=== PATIENT | male | born 1940 | race Caucasian/White ===

== ENCOUNTER 2018-01-28 15:21 | Emergency (ER) | payer MEDICARE, SELFPAY ==
[2018-01-28] VITALS (9 sets, daily range): BP systolic 106–132; BP diastolic 72–81; PULSE 69–77; RESP 16–21; TEMP 36.3; O2SAT 95–98; BMI 25.1
--- NOTE | 2018-01-28 15:49 | ED_ITS ---
HPI - Chest Pain General Chief Complaint: Chest Pain Stated Complaint: CHEST PRESSURE, SHORT OF BREATH Time Seen by Provider: 01/28/18 15:48 Source: patient Mode of arrival: ambulatory Limitations: no limitations History of Present Illness HPI narrative: 78-year-old male with a significant cardiac history to include 2 coronary artery bypass grafts currently on a statin and metoprolol and baby aspirin here for evaluation of chest pressure patient states that it started yesterday sometime in the afternoon. He states that it has improved somewhat since then but is still there. He did take a nitroglycerin at home earlier today which did seem to help it somewhat but did not resolve it completely. He states that he has had chest pressure in the past with exertion but then goes away when he stops the activity. Also states that he has some minor shortness of breath with the pressure. No headache no dizziness. He does state that this is what he felt like prior to events that led to his coronary artery bypass graft. He states that his last stress test was in 2012 or 2013. Related Data Home Medications Medication Instructions Recorded Confirmed aspirin 81 mg PO BID 01/28/18 01/28/18 metoprolol succinate 25 mg PO BEDTIME 01/28/18 01/28/18 naproxen sodium [Aleve] 220 mg PO PRN PRN 01/28/18 01/28/18 nitroglycerin [Nitrostat] 0.4 mg SUBLINGUAL Q5-15M PRN 01/28/18 01/28/18 rosuvastatin 20 mg PO BEDTIME 01/28/18 01/28/18 Allergies Allergy/AdvReac Type Severity Reaction Status Date / Time No Known Drug Allergies Allergy Verified 01/28/18 16:54 Review of Systems Constitutional Denies chills, Denies fever(s), Denies lethargy and Denies weakness Cardiovascular Reports chest pain (Described as a pressure), Reports chest pain at rest, Reports chest pain with activity, Denies diaphoresis, Denies syncope, Denies rapid heart rate, Denies pedal edema, Denies irregular heart rhythm, Denies palpitations, Reports dyspnea and Denies dyspnea on exertion Respiratory Denies chest congestion, Denies cough, Reports dyspnea, Denies dyspnea on exertion and Denies wheezing Gastrointestinal Gastrointestinal: Denies constipation, Denies diarrhea, Denies nausea and Denies vomiting Genitourinary Denies dysuria Musculoskeletal Denies myalgias, Denies arthralgias and Denies muscle cramps Integumentary/Breasts Denies lesions, Denies rash and Denies wounds Neurologic Denies behavioral changes, Denies syncope and Denies weakness Psychiatric Denies behavioral changes Endocrine Denies palpitations Hematologic/Lymphatic Denies easy bleeding and Denies easy bruising Allergic/Immunologic Denies urticaria and Denies wheezing PFSH Surgical History History of cystoscopy History of tonsillectomy History of vasectomy Status post appendectomy Status post cardiac catheterization Status post cardiac catheterization Status post coronary artery bypass graft (06/02/99) Social History Smoking Status: Never smoker Exam Initial Vital Signs Initial Vital Signs: Vital Signs Temperature 97.3 F L 01/28/18 15:31 Pulse Rate 69 01/28/18 15:31 Respiratory Rate 16 01/28/18 15:31 Blood Pressure 128/78 H 01/28/18 15:31 Pulse Oximetry 97 01/28/18 15:31 Const General: cooperative, healthy appearing, comfortable, well developed, well groomed and No acute distress Orientation: alert, awake and oriented x3 HENMI Head: normal to inspection and normocephalic Ears: hearing grossly normal bilaterally Mouth: oral mucosae normal Chest Chest: normal inspection of the chest Resp Effort & Inspection: normal respiratory effort Auscultation: clear to auscultation bilaterally Cardio Rate: regular rate Rhythm: regular rhythm Pulses: radial pulses present GI Inspection: non-distended Palpation: soft, No firm, No guarding and No tender Skin Lesions: no lesions Rashes: no rashes Neuro General: alert, awake and oriented x3 Cognition: normal cognition Speech: speech normal Gait: normal gait Motor: muscle tone normal throughout Sensory Exam: no sensory deficits noted Extrem General: normal to inspection and capillary refill normal Course Orders Ordered: ED Orders 01/28/18 15:37 B Type Natriuretic Peptide Stat Complete Blood Count AUTO DIFF Stat Comprehensive Metabolic Panel Stat Lipase Stat Partial Thromboplastin Time Stat Prothrombin Time INR Stat Troponin I Stat 01/28/18 15:50 XR chest 1V Stat EKG-12 Lead Stat Discontinued Medications Aspirin (Aspirin Chew) 324 mg PO NOW ONE Stop: 01/28/18 15:50 Last Admin: 01/28/18 16:07 Dose: 324 mg Nitroglycerin (Nitro-Bid) 1 inch TOP NOW ONE Stop: 01/28/18 16:46 Last Admin: 01/28/18 16:56 Dose: 1 inch Vital Signs - 8 hr 01/28/18 15:31 01/28/18 16:28 01/28/18 16:50 Temperature 97.3 F L Pulse Rate 69 72 75 Respiratory Rate 16 16 17 Blood Pressure 128/78 H Blood Pressure [Left Arm] 113/81 H 126/81 H Pulse Oximetry 97 96 96 01/28/18 16:56 01/28/18 17:12 01/28/18 17:42 Temperature Pulse Rate 72 72 77 Respiratory Rate 21 Blood Pressure 126/81 H 113/72 Blood Pressure [Left Arm] 106/77 Pulse Oximetry 97 MDM - Chest Pain Lab Data Attestation: I reviewed the patient's lab results. Result diagrams: 01/28/18 15:37 01/28/18 15:37 Lab Results 01/28/18 01/28/18 01/28/18 Range/Units 15:37 15:37 15:37 WBC 5.3 (4.5-11.0) X10^3/uL RBC 4.91 (4.5-5.9) X10^6/uL Hgb 15.1 (13.5-17.5) g/dL Hct 44.8 (41-53) % MCV 91.2 (80-100) fL MCH 30.7 (26-34) PG MCHC 33.7 (30-36) % RDW 14.0 (11.6-14.8) % Plt Count 134 L (150-400) X10^3/uL Neut % (Auto) 75.6 H (50-75) % Lymph % (Auto) 10.7 L (25-40) % Carver % (Auto) 12.7 (3-14) % Eos % (Auto) 0.8 L (2-4) % Baso % (Auto) 0.2 (0-2) % Neut # (Auto) 4000 (4268-2784) /uL PT 12.5 (10.1-12.7) SECONDS INR 1.2 (0.9-1.3) APTT 27 (26.4-36.2) SECONDS Sodium 140 (137-145) mmol/L Potassium 3.7 (3.4-5.1) mmol/L Chloride 102 (98-107) mmol/L Carbon Dioxide 30 (22-32) mmol/L BUN 18 (9-20) mg/dL Creatinine 0.90 (0.66-1.25) mg/dL Estimated GFR > 60.0 (>60) mL/min BUN/Creatinine Ratio 20.0 (6-22) Glucose 99 (80-110) mg/dL Calcium 8.3 L (8.4-10.2) mg/dL Total Bilirubin 1.0 (0.2-1.3) mg/dL AST 27 (17-59) IU/L ALT 26 (21-72) IU/L Alkaline Phosphatase 79 (38-126) U/L Troponin I (0.01-0.034) ng/mL B-Natriuretic Peptide 60.3 (<100) Total Protein 7.2 (6.3-8.2) g/dL Albumin 4.1 (3.5-5.0) g/dL Globulin 3.1 (1.7-4.1) g/dL Albumin/Globulin Ratio 1.3 (1.0-2.8) Lipase 46 (23-300) U/L 01/28/18 Range/Units 15:37 WBC (4.5-11.0) X10^3/uL RBC (4.5-5.9) X10^6/uL Hgb (13.5-17.5) g/dL Hct (41-53) % MCV (80-100) fL MCH (26-34) PG MCHC (30-36) % RDW (11.6-14.8) % Plt Count (150-400) X10^3/uL Neut % (Auto) (50-75) % Lymph % (Auto) (25-40) % Carver % (Auto) (3-14) % Eos % (Auto) (2-4) % Baso % (Auto) (0-2) % Neut # (Auto) (4605-3989) /uL PT (10.1-12.7) SECONDS INR (0.9-1.3) APTT (26.4-36.2) SECONDS Sodium (137-145) mmol/L Potassium (3.4-5.1) mmol/L Chloride (98-107) mmol/L Carbon Dioxide (22-32) mmol/L BUN (9-20) mg/dL Creatinine (0.66-1.25) mg/dL Estimated GFR (>60) mL/min BUN/Creatinine Ratio (6-22) Glucose (80-110) mg/dL Calcium (8.4-10.2) mg/dL Total Bilirubin (0.2-1.3) mg/dL AST (17-59) IU/L ALT (21-72) IU/L Alkaline Phosphatase (38-126) U/L Troponin I < 0.012 (0.01-0.034) ng/mL B-Natriuretic Peptide (<100) Total Protein (6.3-8.2) g/dL Albumin (3.5-5.0) g/dL Globulin (1.7-4.1) g/dL Albumin/Globulin Ratio (1.0-2.8) Lipase (23-300) U/L Imaging Data Chest x-ray: Radiologist's impression: PROCEDURE: XR CHEST 1V INDICATIONS: Chest pain TECHNIQUE: One view of the chest was acquired. COMPARISON: [facility], , CHEST 2 VIEW, 09/14/2013, 14:59. FINDINGS: Surgical changes and devices: Sternal wires and hilar clips. Lungs and pleura: No consolidations or pneumothorax. Opacities are present overlying the left base and costophrenic angle. This could be overlying to the patient. Mediastinum: Mediastinal contours appear normal. Heart size is mildly enlarged. Bones and chest wall: No suspicious bony lesions. Overlying soft tissues appear unremarkable. IMPRESSION: Obscured appearance of the inferior left base and costophrenic angle secondary to opacities. Please correlate to overlying structures on repeat study is recommended as indicated. Dictated by: Luisa Suero M.D. on 01/28/2018 at 16:20 Approved by: Luisa Suero M.D. on 01/28/2018 at 16:22 ECG Data Attestation: I personally reviewed and interpreted this ECG as follows: Prior ECG tracings: not available for review Interpretation: EKG timed 1526 hr Sinus rhythm Normal axis Ventricular rate is 69 Normal QRS Normal QTC Nonspecific ST T wave changes Repeat EKG timed 426 p.m. Sinus rhythm Ventricular rate is 72 Normal axis Normal QRS Normal QTC Nonspecific ST T wave changes Unchanged from prior EKG MDM Narrative Medical decision making narrative: Patient with a significant coronary history. Had stable vital signs here in the emergency department. Troponin was negative and he states that he has had constant symptoms since yesterday afternoon. EKG shows nonspecific ST T wave changes. Nitroglycerin paste was placed on the right-sided chest and patient states that this did help his symptoms somewhat. He was given an aspirin here in the emergency department. Discussed the case with Dr. Henry at [facility] who accepts the patient in transfer for continued cardiac workup. I did discuss this with the patient and the family who expressed understanding and agreement with plan Discharge Plan Departure Patient Disposition: [facility] Clinical Impression: Chest pain, Coronary artery disease Prescriptions: No Action aspirin 81 mg Tablet,Delayed Release (Dr/Ec) 81 mg PO BID RF: 0 naproxen sodium [Aleve] 220 mg Tablet 220 mg PO PRN PRN (Reason: Pain, Mild) RF: 0 metoprolol succinate 25 mg Tablet Extended Release 24 Hr 25 mg PO BEDTIME RF: 0 rosuvastatin 40 mg Tablet 20 mg PO BEDTIME RF: 0 nitroglycerin [Nitrostat] 0.4 mg Tablet, Sublingual 0.4 mg SUBLINGUAL Q5-15M PRN (Reason: Chest Pain) RF: 0
[2018-01-28 15:59] LABS: Add Manual Diff / Slide Review NO; Basophils Percent Auto 0.2 % (0-2); Eosinophils Percent Auto 0.8 % (2-4); Hematocrit 44.8 % (41-53); Hemoglobin 15.1 g/dL (13.5-17.5); Lymphocytes Percent Auto 10.7 % (25-40); Mean Corpuscular HGB Conc 33.7 % (30-36); Mean Corpuscular Hemoglobin 30.7 PG (26-34); Mean Corpuscular Volume 91.2 fL (80-100); Monocytes Percent Auto 12.7 % (3-14); Neutrophils Absolute Auto 4000 /uL (3000-5900); Neutrophils Percent Auto 75.6 % (50-75); Platelet Count 134 X10^3/uL (150-400); Red Blood Cell Count 4.91 X10^6/uL (4.5-5.9); White Blood Cell Count 5.3 X10^3/uL (4.5-11.0)
[2018-01-28 16:02] LABS: INR 1.2 (0.9-1.3); Prothrombin Time 12.5 SECONDS (10.1-12.7)
[2018-01-28 16:04] LABS: PTT Partial Thromboplastin Tim 27 SECONDS (26.4-36.2)
[2018-01-28] MEDS: ASPIRIN 81 MG TAB 324 MG PO (16:07)
[2018-01-28 16:08] LABS: Alanine Aminotransferase 26 IU/L (21-72); Albumin 4.1 g/dL (3.5-5.0); Albumin Globulin Ratio 1.3 (1.0-2.8); Alkaline Phosphatase 79 U/L (38-126); Aspartate Aminotransferase 27 IU/L (17-59); Blood Urea Nitrogen 18 mg/dL (9-20); Calcium 8.3 mg/dL (8.4-10.2); Carbon Dioxide 30 mmol/L (22-32); Chloride 102 mmol/L (98-107); Estimated Glomerular Filt Rate > 60.0 mL/min (>60); Globulin 3.1 g/dL (1.7-4.1); Glucose 99 mg/dL (80-110); HEMOLYSIS < 15 (0-50); Lipase 46 U/L (23-300); Potassium 3.7 mmol/L (3.4-5.1); Sodium 140 mmol/L (137-145); Total Protein 7.2 g/dL (6.3-8.2)
--- NOTE | 2018-01-28 16:11 | PC.NURSE ---
Pt has hx of angina. Has had 2 open heart surgeries, most recent 4 years ago. Also had 1 stent placed. States he began to experience chest pressure and shortness of breath with exertion yesterday. Took some Aleve and 2 doses of NTG without relief. After 2nd dose of NTG, pt began to feel nauseated and dizzy. Went to bed and when he woke up this morning he was still experiencing chest pressure and SOB with exertion.
[2018-01-28 16:15] LABS: B Type Natriuretic Peptide 60.3 (<100)
[2018-01-28] MEDS: NITROGLYCERIN OINT 1 INCH/GM OINT...G. TOP (16:56)
[2018-01-28 17:17] LABS: Troponin I < 0.012 ng/mL (0.01-0.034)
== END 2018-01-28 20:50 | disposition short-term general hospital (02) ==
PROVIDERS: Emergency Provider Emergency Medicine; Family Provider Family Medicine; PCP Family Medicine; Referring Provider Internal Medicine Cardiovascular Disease
DX: I25.10 Atherosclerotic heart disease of native coronary artery without angina pectoris (principal); R07.9 Chest pain, unspecified
CPT/HCPCS: 36591; 71045; 80053; 83690; 83880; 84484; 85025; 85610; 85730; 93005; 93041; 99283; 99285

== ENCOUNTER → 2018-11-05 11:18 | Outpatient (CLI) | payer MEDICARE, SELFPAY | PROVIDERS: Family Provider Family Medicine; PCP Family Medicine; Visit Provider Urology | DX: N40.1 Benign prostatic hyperplasia with lower urinary tract symptoms (principal) | CPT/HCPCS: 36415; 84153 ==

== ENCOUNTER → 2019-10-01 06:56 | Outpatient (CLI) | payer MEDICARE, SELFPAY ==
--- NOTE | 2019-10-01 06:58 | DI.ECHO.S_ITS ---
[facility] +---------+ : : [address] [place] : : : : [id number] : : : : Phone: [phone]+ Echocardiogram Report + + :Name: ALDO DE LA O Study Date: 10/01/2019 Height: 70 in : :[facility] Weight: 175 lb : : Gender: Male BSA: 2.0 m2 : :: 1940 Age: 79 yrs BP: 128/82 mmHg: :Reason For Study: CAD : : Performed By: Rosette Singh : :Referring: ESTEE CEDEÑO : + + Interpretation Summary Left ventricular systolic function is moderately reduced with the ejection fraction estimated to be 40-45% with moderate global hypokinesis and more significant hypokinesis in the proximal and mid inferoseptum, inferior wall, and inferolateral wall, as well as an abnormal septal motion consistent with a postoperative state, but both appear unchanged from previous. The left ventricle is mild-moderately dilated with an estimated left ventricular end diastolic volume of 125 ml, up from 110 ml on the previous study. The left ventricle appears slightly larger and slightly less dynamic compared to the previous study. Average global peak systolic longitudional strain is moderately reduced at -14.1%. Diastolic parameters suggest a relaxation abnormality of the left ventricle, consistent with probable normal filling pressures and is likely lower compared to the previous study. The right ventricle is normal size but is unchanged compared to the previous study. Right ventricular systolic pressure is estimated to be 28 mmHg plus the clinically estimated CVP which cannot be estimated on this exam. The left atrium is mildly dilated but has mildly decreased in size since the prior echo exam. There is mild to moderate mitral regurgitation that is unchanged compared to the previous study. There is moderate aortic valve sclerosis without significant aortic stenosis and there is no other significant valvular heart disease. The aortic root is borderline dilated and the ascending aorta is mildly enlarged but both are unchanged compared to the previous study. Procedure: A two-dimensional transthoracic echocardiogram with color flow and Doppler was performed. The study quality was technically adequate. Comparison is made with the echocardiogram of 05/15/2016. Contrast not used due to good endocardial border definition. The patient was in normal sinus rhythm during the exam. Left Ventricle: The left ventricle is mild-moderately dilated. The estimated left ventricular end diastolic volume is 125 ml, up from 110 ml. There is normal left ventricular wall thickness. Left ventricular systolic function is moderately reduced. The ejection fraction is estimated to be 40-45%. Average global peak systolic longitudional strain of -14.1%. There is moderate global hypokinesis of the left ventricle. That is worse in the proximal and mid inferoseptum, inferior wall, and inferolateral wall but this appears unchanged from previous. This is Slightly larger and less dynamic compared to the previous study. Diastolic parameters suggest a relaxation abnormality of the left ventricle, consistent with probable normal filling pressures. This is Likely lower compared to the previous study. Right Ventricle: The right ventricle is normal size. Right ventricular systolic function is mildly reduced. This is unchanged compared to the previous study. Atria: The left atrium is mildly dilated. The left atrium has mildly decreased in size since the prior echo exam. Right atrial size is normal. There is no Doppler evidence for an interatrial shunt. Mitral Valve: The mitral valve leaflets appear mildly thickened, but open well. There is mild to moderate mitral regurgitation. This is unchanged compared to the previous study. Aortic Valve: There is moderate aortic valve sclerosis. There is reduced mobility of the non-coronary cusp. Right and left coronary cusps appear to open well. There is no hemodynamically significant valvular aortic stenosis. There is trace aortic regurgitation. Tricuspid Valve: The tricuspid valve is normal in structure and function. There is trace tricuspid regurgitation. Right ventricular systolic pressure is estimated to be 28 mmHg plus the clinically estimated CVP which cannot be estimated on this exam. Pulmonic Valve: The pulmonic valve is not well seen, but is grossly normal. There is no pulmonic valvular regurgitation. There is no other significant valvular heart disease. Great Vessels: The aortic root is borderline dilated. The ascending aorta is mildly enlarged. This is unchanged compared to the previous study. The inferior vena cava was not visualized. Pericardium/ Pleura There is no pericardial effusion. There is no pleural effusion. MMode/2D Measurements & Calculations LVIDd: 6.3 cm LVOT diam: 2.3 cm LVIDs: 5.3 cm Ao root diam: 3.8 cm FS: 16.2 % asc Aorta Diam: 3.9 cm EPSS: 1.8 cm Ao Arch Diam (Prox Trans): 3.1 cm IVSd: 0.74 cm LVPWd: 0.94 cm LV chavira. diameter/BSA (cm/m^2): 3.2 LV sys. diameter/BSA (cm/m^2): 2.7 LA A2 area: 23.0 cm2 RA long axis: 5.1 cm LA A4 area: 17.5 cm2 RA area: 13.9 cm2 LA length (vol): 4.7 cm RA vol: 32.3 ml LA vol: 72.4 ml RA : 16.4 ml/m2 LA vol index: 36.7 ml/m2 RVD1 (basal): 3.8 cm LVAd ap4: 33.1 cm2 TAPSE: 1.8 cm LVAs ap4: 22.9 cm2 LVLs ap4: 6.9 cm LVAd ap2: 34.3 cm2 LVLd ap2: 8.3 cm LVAs ap2: 18.2 cm2 LVLs ap2: 7.0 cm Doppler Measurements & Calculations Ao V2 max: 164.2 cm/sec LVOT Max Dmitriy: 74.5 cm/sec Ao V2 mean: 110.9 cm/sec LV V1 max P.2 mmHg Ao max P.8 mmHg LV V1 VTI: 16.5 cm Ao mean P.6 mmHg JASMINE(I,D): 1.8 cm2 Ao V2 VTI: 38.4 cm JASMINE(V,D): 1.9 cm2 sev ratio: 0.43 JASMINE indexed to BSA (cm^2/m^2): 0.91 MV E max dmitriy: 88.5 cm/sec TR max dmitriy: 264.6 cm/sec MV A max dmitriy: 82.6 cm/sec TR max P.0 mmHg MV E/A: 1.1 PA V2 max: 100.0 cm/sec Med Peak E' Dmitriy: 9.0 cm/sec PA V2 mean: 74.3 cm/sec E/E' med: 9.8 PA mean P.4 mmHg Lat Peak E' Dmitriy: 8.3 cm/sec PA pr(Accel): 38.5 mmHg E/E' lat: 10.6 PA Accel Time: 0.10 sec E/e' average: 10.2 MV dec time: 0.18 sec MV P1/2t: 57.4 msec MV P1/2t max dmitriy: 88.8 cm/sec SV(LVOT): 68.9 ml MVA(P1/2t): 3.8 cm2 Reading Physician:CONSUELO
== END ==
PROVIDERS: Family Provider Family Medicine; PCP Family Medicine; Referring Provider Family Medicine; Visit Provider Family Medicine
DX: I08.0 Rheumatic disorders of both mitral and aortic valves (principal); I25.810 Atherosclerosis of coronary artery bypass graft(s) without angina pectoris; I77.89 Other specified disorders of arteries and arterioles
CPT/HCPCS: 93306

== ENCOUNTER → 2019-10-12 14:59 | Outpatient (CLI) | payer MEDICARE, SELFPAY ==
[2019-10-12 17:34] LABS: Add Manual Diff / Slide Review NO; Basophils Absolute Auto 0 /uL (0-100); Basophils Percent Auto 0.8 % (0-2); Eosinophils Absolute Auto 0 /uL (0-450); Hematocrit 45.8 % (41-53); Hemoglobin 15.3 g/dL (13.5-17.5); Lymphocytes Absolute Auto 1200 /uL (1100-4500); Lymphocytes Percent Auto 23.8 % (25-40); Mean Corpuscular HGB Conc 33.4 % (30-36); Monocytes Absolute Auto 500 /uL (0-900); Monocytes Percent Auto 11.1 % (3-14); Neutrophils Absolute Auto 3100 /uL (1500-7000); Neutrophils Percent Auto 63.3 % (50-75); Platelet Count 138 X10^3/uL (150-400); Red Blood Cell Count 4.92 X10^6/uL (4.5-5.9); Red Cell Distribution Width 13.6 % (11.6-14.8); White Blood Cell Count 4.9 X10^3/uL (4.5-11.0)
[2019-10-12 19:22] LABS: Alanine Aminotransferase 21 IU/L (<50); Albumin 4.8 g/dL (3.5-5.0); Albumin Globulin Ratio 1.5 (1.0-2.8); Alkaline Phosphatase 81 U/L (38-126); Aspartate Aminotransferase 36 IU/L (17-59); BUN Creatinine Ratio 14.1 (6-22); Bilirubin Total 0.5 mg/dL (0.2-1.3); Blood Urea Nitrogen 14 mg/dL (9-20); Calcium 9.4 mg/dL (8.4-10.2); Carbon Dioxide 30 mmol/L (22-32); Chloride 103 mmol/L (98-107); Estimated Glomerular Filt Rate > 60.0 mL/min (>60); Globulin 3.1 g/dL (1.7-4.1); Glucose 78 mg/dL (80-110); HEMOLYSIS < 15 (0-50); Potassium 4.6 mmol/L (3.4-5.1); Sodium 140 mmol/L (137-145); Total Protein 7.9 g/dL (6.3-8.2)
[2019-10-12 19:28] LABS: NT-proBNP (BNP-Adult 18+) 265 pg/mL (<450)
[2019-10-12 19:50] LABS: Thyroid Stimulating Hormone 2.93 uIU/mL (0.47-4.68)
== END ==
PROVIDERS: Family Provider Family Medicine; PCP Family Medicine; Referring Provider Family Medicine; Visit Provider Family Medicine
DX: I25.810 Atherosclerosis of coronary artery bypass graft(s) without angina pectoris (principal)
CPT/HCPCS: 36415; 80053; 83880; 84443; 85025

== ENCOUNTER → 2020-10-19 09:48 | Outpatient (CLI) | payer MEDICARE, SELFPAY ==
[2020-10-19] MEDS: COVID-19 VACC #1, MRNA(MOD) 100 MCG/0.5 ML VIAL IM (10:06)
== END ==
PROVIDERS: Family Provider Family Medicine; PCP Family Medicine; Visit Provider Internal Medicine
DX: Z23 Encounter for immunization (principal)
CPT/HCPCS: 0011A; 91301

== ENCOUNTER → 2020-11-16 09:16 | Outpatient (CLI) | payer MEDICARE, SELFPAY ==
[2020-11-16] MEDS: COVID-19 VACC #2, MRNA(MOD) 100 MCG/0.5 ML VIAL IM (09:22)
== END ==
PROVIDERS: PCP Family Medicine; Visit Provider Internal Medicine
DX: Z23 Encounter for immunization (principal)
CPT/HCPCS: 0012A; 91301

== ENCOUNTER → 2021-01-16 13:16 | Outpatient (CLI) | payer MEDICARE, SELFPAY ==
[2021-01-16 16:44] LABS: COVID19 -Nasal RAPID Negative (Negative)
== END ==
PROVIDERS: PCP Family Medicine; Visit Provider Physician Assistant
DX: Z01.812 Encounter for preprocedural laboratory examination (principal); Z20.822 Contact with and (suspected) exposure to COVID-19
CPT/HCPCS: 87635; C9803

== ENCOUNTER → 2021-01-18 10:39 | Outpatient (CLI) | payer MEDICARE, SELFPAY ==
--- NOTE | 2021-01-18 11:53 | PM.TREADMILL ---
Cardiac Stress Test Report Referral & Results Date Patient Seen: 01/18/21 Time Patient Seen: 11:53 Requesting provider: Riri Crandall Indication: Athersclerotic heart disease Rest ECG: Sinus bradycardia Procedure Note: Standard Drew protocol, 8:30 mins, 9.3 METS Very good exercise capacity, KELLY -47% Normal hemodynamic response to exercise No chest pain or anginal symptoms Less than [address] depression in II, aVF, V3-V6, T wave inversion III Frequent PVCs, bigimeny Impression: Nondiagnostic exercise stress test Please note: Actual ECG tracings can be found in the PACS system.
--- NOTE | 2021-01-19 15:38 | DI.NM.S_ITS ---
DATE OF SERVICE: 01/18/2021 PROCEDURE PERFORMED: Exercise treadmill stress and rest myocardial perfusion imaging with gating to assess ejection fraction and regional wall motion. ORDERING PROVIDER: Dr. Riri Crandall. INDICATIONS: The patient is a 80-year-old male with a history of coronary artery bypass grafting, who presents with symptoms concerning for stable angina. EXERCISE TREADMILL TESTING: The patient was able to exercise for a total of 8 minutes 30 seconds on a standard Drew protocol suggesting excellent exercise capacity with an KELLY of -47%. He had a normal heart rate and blood pressure response to exercise, achieving a maximum heart rate of 130 BPM (92% of his predicted maximum). He had no chest discomfort. His resting ECG shows subtle, nonspecific ST- segment abnormalities and occasional PVCs. With exercise, he develops frequent PVCs, initially in a bigeminal pattern, but then improving in frequency and no complex ventricular ectopy. There is mild, nonspecific ST depression in inferolateral leads with stress, but no concerning ST depression. At 7 minutes 18 seconds of exercise at a heart rate of 122 BPM, 25.9 millicuries of technetium-99m Myoview was injected and he was imaged 15 minutes later using a gated SPECT acquisition protocol. The following day, he was reinjected with an additional 27.2 millicuries of technetium-99m Myoview and was imaged 30 minutes later using a gated SPECT acquisition protocol. FINDINGS: 1. Raw data: There is fairly good myocardial tracer uptake. Lung/heart ratio is normal at 0.24 with a normal TID ratio of 0.88. 2. Quantitated gated SPECT: Post-stress ejection fraction is 50% without any obvious focal wall motion abnormality. Resting ejection fraction is 53% with a similar contraction pattern. The resting end-diastolic volume is moderately increased at 172 mL. 3. Myocardial perfusion imaging: Post-stress supine images shows a fairly normal myocardial perfusion pattern but with a mild defect at the base of the inferior wall in a pattern consistent with diaphragmatic attenuation, supported by its resolution on the prone images, except at the very base of the inferior wall, and show no concerning perfusion defects. The resting images show a similar perfusion pattern without any obvious areas of improvement. IMPRESSION: 1. Probable normal, low risk myocardial perfusion study. 2. Mild fixed proximal inferior defect that nearly completely resolves on prone imaging, most consistent with diaphragmatic attenuation, although previous nontransmural infarction cannot be entirely excluded. There is no evidence for any significant myocardial ischemia. 3. Low normal left ventricular systolic function without any focal wall motion abnormality although moderately increased left ventricular volumes. 4. Excellent exercise capacity without angina and only modest, nonspecific ST depression with exercise. He did have frequent premature ventricular contractions, at times in a bigeminal pattern with stress, but no other complex ventricular ectopy. 5. Compared to his previous myocardial perfusion study from 03/08/2014, the predominantly reversible inferior and inferolateral perfusion defect is no longer present. The previous ejection fraction was 47% with inferior and inferolateral hypokinesis which has resolved on the current study and improvement of the ejection fraction. The previous end-diastolic volume was 129 mL, suggesting interval increase in left ventricular size. Yaya Lemos - ANDREI/linda/padmini doc#: [id number]/job#: [id number] dd: 01/19/2021 12:43:00 dt: 01/19/2021 15:17:00 DICTATING /COPIES TO: Zohaib Hensley MD; Riri Crandall MD COPIES MNE: ISAAC
== END ==
PROVIDERS: PCP Family Medicine; Referring Provider Internal Medicine; Visit Provider Internal Medicine
DX: R07.89 Other chest pain (principal); I25.10 Atherosclerotic heart disease of native coronary artery without angina pectoris; Z95.5 Presence of coronary angioplasty implant and graft
CPT/HCPCS: 78452; 93017; A9502

== ENCOUNTER → 2021-01-19 07:45 | Outpatient (CLI) | payer MEDICARE, SELFPAY ==
--- NOTE | 2021-01-19 | DI.ECHO.S_ITS ---
[facility]---------+ [facility] +---------+ : : [address] : : : : [id number] : : : : Phone: [phone]+ Echocardiogram Report + + :Name: ALDO DE LA O Study Date: 01/19/2021 Height: 70 in : :[facility] ReadingLocation: Weight: 178 lb : : Gender: Male BSA: 2.0 m2 : :: 1940 Age: 80 yrs BP: 164/74 mmHg: :Reason For Study: CAD : :Ordering Physician: Malik : :Raz Montgomery Performed By: Simone Natarajan : :Referring: MALIK YOUNGBLOOD : + + Interpretation Summary Sinus bradycardia. Heart rate is 47-51 bpm. Mildly dilated LV with septal dyskinesis, very severe proximal inferior hypokinesis and global hypokinesis otherwise. EF is 35-40%. Stage II diastolic dysfunction. The left atrium is mildly dilated; otherwise normal chamber sizes. Aortic valve leaflets are moderately thickened and calcified (especially the non-coronary leaflet) but without significant aortic stenosis and there is no other significant valvular heart disease. The aortic root is borderline dilated and the ascending aorta is mildly enlarged (3.9 cm diameter) Compared to prior study 10/01/2019 bradycardia is new. LV is slightly less dynamic Procedure: A two-dimensional transthoracic echocardiogram with color flow and Doppler was performed. The study quality was technically adequate. Comparison is made with the echocardiogram of 10/01/2019. The patient was in sinus bradycardia with heart rates between 47-51 bpm during the exam. Left Ventricle: The left ventricle is mildly dilated. There is normal left ventricular wall thickness. Left ventricular systolic function is moderately reduced. The ejection fraction is estimated to be 40-45%. This is unchanged compared to the previous study. There is moderate global hypokinesis of the left ventricle. That is worse in the proximal and mid inferoseptum, inferior wall, and inferolateral wall but this appears unchanged from previous. Diastolic parameters suggest a pseudonormalization pattern, consistent with probable elevated filling pressures. Right Ventricle: The right ventricle is normal size. Right ventricular systolic function is mildly reduced. Atria: The left atrium is mildly dilated. The right atrium is normal in size. There is no Doppler evidence for an interatrial shunt. Mitral Valve: The mitral valve is normal in structure and function. There is mild mitral regurgitation. Aortic Valve: There is moderate aortic valve sclerosis. There is trace aortic regurgitation. Tricuspid Valve: The tricuspid valve is normal in structure and function. There is mild tricuspid regurgitation. The right ventricular systolic pressure is estimated to be at least 42 mmHg based on an estimated right atrial pressure of 8 mm Hg. Pulmonic Valve: The pulmonic valve is normal in structure and function. There is a trace or physiologic amount of pulmonic regurgitation. Great Vessels: The aortic root is normal size. The ascending aorta is mildly enlarged. The IVC is dilated (diameter is greater than 2.1 cm) yet it collapses greater than 50% with a sniff. This suggests a right atrial pressure of 8 mm Hg. Pericardium/ Pleura There is no pericardial effusion. There is no pleural effusion. MMode/2D Measurements & Calculations LVIDd: 6.0 cm LVOT diam: 2.4 cm LVIDs: 5.0 cm Ao root diam: 3.5 cm FS: 17.4 % asc Aorta Diam: 3.9 cm IVSd: 0.87 cm LVPWd: 0.92 cm LV chavira. diameter/BSA (cm/m^2): 3.0 LV sys. diameter/BSA (cm/m^2): 2.5 LA A2 area: 23.0 cm2 RA long axis: 5.6 cm LA A4 area: 20.1 cm2 RA area: 17.5 cm2 LA length (vol): 5.5 cm RA vol: 45.9 ml LA vol: 71.4 ml RA : 23.1 ml/m2 LA vol index: 36.0 ml/m2 IVC diam: 2.3 cm RVD1 (basal): 3.4 cm TAPSE: 1.4 cm Doppler Measurements & Calculations Ao V2 max: 160.0 cm/sec LVOT Max Dmitriy: 109.1 cm/sec Ao V2 mean: 109.4 cm/sec LV V1 max P.8 mmHg Ao max P.2 mmHg LV V1 VTI: 26.1 cm Ao mean P.3 mmHg JASMINE(I,D): 2.9 cm2 Ao V2 VTI: 38.9 cm JASMINE(V,D): 3.0 cm2 sev ratio: 0.67 JASMINE indexed to BSA (cm^2/m^2): 1.5 MV E max dmitriy: 98.2 cm/sec TR max dmitriy: 291.6 cm/sec MV A max dmitriy: 64.8 cm/sec TR max P.0 mmHg MV E/A: 1.5 PA V2 max: 106.1 cm/sec Med Peak E' Dmitriy: 2.8 cm/sec PA V2 mean: 76.5 cm/sec E/E' med: 34.6 PA mean P.6 mmHg Lat Peak E' Dmitriy: 9.2 cm/sec PA pr(Accel): 33.3 mmHg E/E' lat: 10.7 E/e' average: 22.7 MV dec time: 0.14 sec SV(LVOT): 114.0 ml Electronically signed by: Malik Youngblood M.D. on Reading Physician:01/21/2021 11:38 AM
== END ==
PROVIDERS: PCP Family Medicine; Referring Provider Internal Medicine; Visit Provider Internal Medicine
DX: I08.3 Combined rheumatic disorders of mitral, aortic and tricuspid valves (principal); I25.10 Atherosclerotic heart disease of native coronary artery without angina pectoris; I77.89 Other specified disorders of arteries and arterioles
CPT/HCPCS: 93306

== ENCOUNTER → 2021-04-14 08:34 | Outpatient (CLI) | payer MEDICARE, SELFPAY ==
[2021-04-14 11:11] LABS: Alanine Aminotransferase 17 IU/L (<50); Albumin 4.7 g/dL (3.5-5.0); Albumin Globulin Ratio 1.7 (1.0-2.8); Alkaline Phosphatase 87 U/L (38-126); Aspartate Aminotransferase 27 IU/L (17-59); BUN Creatinine Ratio 15.7 (6-22); Bilirubin Total 0.9 mg/dL (0.2-1.3); Blood Urea Nitrogen 16 mg/dL (9-20); Calcium 9.8 mg/dL (8.4-10.2); Carbon Dioxide 28 mmol/L (22-32); Chloride 105 mmol/L (98-107); Cholesterol 163 mg/dL (140-199); Estimated Glomerular Filt Rate > 60.0 mL/min (>60); Globulin 2.8 g/dL (1.7-4.1); Glucose 105 mg/dL (80-110); HDL Cholesterol 52 mg/dL (40-60); HEMOLYSIS < 15 (0-50); LDL Cholesterol Calculated 80 mg/dL (<100); Potassium 5.8 mmol/L (3.4-5.1); Sodium 142 mmol/L (137-145); Total Protein 7.5 g/dL (6.3-8.2); Triglycerides 153 mg/dL (35-150)
[2021-04-16 13:36] LABS: Lipoprotein (a) 216.8 nmol/L (<75.0)
== END ==
PROVIDERS: PCP Family Medicine; Referring Provider Internal Medicine; Visit Provider Internal Medicine
DX: I21.29 ST elevation (STEMI) myocardial infarction involving other sites (principal)
CPT/HCPCS: 36415; 80053; 80061; 83695

== ENCOUNTER 2022-02-24 20:08 | Observation (INO) | payer MEDICARE, SELFPAY ==
[2022-02-24] VITALS (9 sets, daily range): BP systolic 129–149; BP diastolic 53–82; PULSE 55–66; RESP 17–25; TEMP 36.6–36.8; O2SAT 95–97; BMI 26.5
--- NOTE | 2022-02-24 20:07 | DI.CT.S_ITS ---
PROCEDURE: CT STROKE INDICATIONS: altered, CODE STROKE slurred speach TECHNIQUE: Noncontrast 4.5 mm thick angled axial sections acquired from the foramen magnum to the vertex, with coronal reformats. For radiation dose reduction, the following was used: automated exposure control, adjustment of mA and/or kV according to patient size. COMPARISON: None. FINDINGS: Image quality: Excellent. CSF spaces: Basal cisterns are patent. No extra-axial fluid collections. The ventricles are symmetric in size and shape. Brain: No intracranial bleeds or masses. There is cerebral volume loss for age, with resultant ventricular and sulcal prominence. There are periventricular and deep white matter chronic small vessel ischemic changes. There is intracranial internal carotid artery atherosclerosis. Skull and face: Calvarium and visualized facial bones appear intact, without suspicious lesions. Sinuses: Visualized sinuses and mastoids are clear. IMPRESSION: No acute disease, no contraindication to tPA administration found. This information was immediately called to the emergency room physician caring for the patient, at 8:27 p.m. In the evening. This study fulfills neurological imaging criteria for inclusion or exclusion of acute stroke therapies based on available published neurological guidelines. Dictated by: Donnell Luciano M.D. on 02/24/2022 at 20:23 Approved by: Donnell Luciano M.D. on 02/24/2022 at 20:27
--- NOTE | 2022-02-24 20:07 | DI.CT.S_ITS ---
PROCEDURE: CT ANGIO HEAD AND NECK INDICATIONS: altered, CODE STROKE slurred speach TECHNIQUE: Pre-contrast 4.5 mm thick sections acquired from the foramen magnum to the vertex. After the administration of intravenous contrast, 1 mm thick sections acquired from the aortic arch through the [place]. Post-contrast 4.5 mm thick sections then re-acquired from the foramen magnum to the vertex. 3-dimensional nikvlrd-fdhbsjhav-dsovnfpiwz (MIP) and/or volume rendering reformats were acquired of the central intracranial vasculature and neck separately. For radiation dose reduction, the following was used: automated exposure control, adjustment of mA and/or kV according to patient size. COMPARISON: None. FINDINGS: Image quality: Excellent. BRAIN: CSF spaces: Ventricles are normal in size and shape. Basal cisterns are patent. No extra-axial fluid collections. Brain: No midline shift. No intracranial bleeds or masses. [place]-white matter interface appears intact. Skull and face: Calvarium and facial bones appear intact, without suspicious lesions. Orbits appear normal. Sinuses: Sinuses and mastoids are clear. HEAD CT ANGIOGRAPHY: Anterior circulation: Intracranial internal carotid arteries are normal in size and flow. The flow within the paired anterior cerebral arteries is normal and symmetric. The flow within the middle cerebral arteries is normal and symmetric. The anterior communicating artery is seen. No aneurysms are seen. Posterior circulation: Visualized portions of the vertebral arteries demonstrate normal caliber, and join to form a normal appearing basilar artery. Flow within the posterior cerebral arteries is normal and symmetric. No aneurysms are seen. NECK CT ANGIOGRAPHY: Carotid system: The great vessels demonstrate a conventional anatomy as they arise from the aortic arch. The origins of the common carotid arteries appear patent. The common carotid arteries demonstrate normal caliber and courses. The bifurcation regions are both patent but there is asymmetric calcification at the proximal left internal carotid artery when compared to that of the right. The degree of stenosis is estimated at less than 50% on the left and minimal on the right.. The internal carotid arteries demonstrate normal calibers and courses. Posterior circulation: The origins of the vertebral arteries both appear widely patent. The more superior extracranial portions of both vertebral arteries also demonstrate normal courses and calibers. They join to form a normal appearing basilar artery. Soft tissues: Visualized neck soft tissues demonstrate no suspicious abnormalities. Bones: No suspicious bony lesions. Visualized cervical spine appears normally aligned. IMPRESSION: No embolic disease found, no aneurysm or vascular malformation seen. Asymmetric atherosclerotic calcific plaquing at the proximal internal carotid arteries bilaterally, minimal on the right and mild on the left with less than 50% stenosis estimated at the left proximal internal carotid artery. No posterior circulation abnormality found. Any quantitative measurements of stenosis were performed using NASCET criteria. Dictated by: Donnell Luciano M.D. on 02/24/2022 at 20:30 Approved by: Donnell Luciano M.D. on 02/24/2022 at 20:34
--- NOTE | 2022-02-24 20:12 | ED_ITS ---
HPI - Neuro Symptoms/Deficit General Chief Complaint: Neuro Symptoms/Deficit Stated Complaint: Stroke Time Seen by Provider: 02/24/22 20:12 History of Present Illness HPI Narrative: 82M nonsmoker with history of coronary artery disease and 2 prior stents presents by EMS for evaluation of neurologic symptoms that started at 7:35 p.m.. He is reported to have been in his normal state of health until that time when he started having a sudden onset difficulty with speech, trouble communicating and finding words. He denies any other obvious symptoms such as dizziness, weakness or lightheadedness. He denies any facial weakness or extremity numbness, tingling or weakness. He is had no recent illness or traumatic injury. There is report of the use of an anticoagulant but sent him with 3 medications, none of which are an anticoagulant and at this time there is no anticoagulant listed in his medication list. We are working on verifying. He is activated on code stroke and transported directly to CT Related Data Home Medications Medication Instructions Recorded Confirmed aspirin 81 mg tablet,delayed 81 mg PO BID 01/28/18 02/24/22 release metoprolol succinate 25 mg 25 mg PO BEDTIME 01/28/18 02/24/22 tablet,extended release 24 hr naproxen sodium 220 mg tablet 220 mg PO PRN PRN Pain, Mild 01/28/18 02/24/22 (Aleve) rosuvastatin 40 mg tablet 20 mg PO BEDTIME 01/28/18 02/24/22 evolocumab 140 mg/mL subcutaneous 1 ea SUBCUT USEASDIRECTD 02/24/22 02/24/22 pen injector (Robbie Nunez) isosorbide mononitrate 30 mg 1 tab PO DAILY 02/24/22 02/24/22 tablet,extended release 24 hr Previous Rx's Medication Instructions Recorded nitroglycerin 0.4 mg sublingual 0.4 mg sublingual Q5-15M PRN Chest 10/21/19 tablet (Nitrostat) Pain #20 tabs Allergies Allergy/AdvReac Type Severity Reaction Status Date / Time No Known Drug Allergies Allergy Verified 02/24/22 20:37 Review of Systems Review of Systems Narrative: GENERAL: Denies chills, fatigue, malaise, fever, sweats. HEENT: Denies sinus pain, ear pain, sore throat, difficulty swallowing, dizziness. RESPIRATORY: Denies dyspnea, cough, wheezing, hemoptysis, sputum. CARDIOVASCULAR: Denies chest pain, palpitations, orthopnea, edema, GASTROINTESTINAL: Denies nausea, vomiting, abdominal pain, diarrhea, constipation, melena. : Denies dysuria, frequency, incontinence, hematuria, urinary retention. MUSCULOSKELETAL: denies weakness, joint pain, or bony pain SKIN: Denies rash, skin lesions, or other NEUROLOGIC: See HPI PSYCHIATRIC: No concerning psychosocial issues. 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 Mother No problems noted. Social History household members: spouse Smoking Status: Never smoker Smoking Status: Never smoker alcohol intake frequency: a few times a week Substance Use Type: does not use Exam Narrative Exam Narrative: GENERAL: [82] year old patient appears stated age. Well-developed patient, in mild distress. HEAD: Atraumatic. Normocephalic. EYES: Pupils equal round and reactive. Extraocular motions intact. No scleral icterus. No injection or drainage. ENT: Nose without bleeding, purulent drainage. Throat without erythema, tonsillar hypertrophy or exudate. Airway patent. NECK: Trachea midline. Non tender CARDIOVASCULAR: Regular rate and rhythm without murmurs, gallops, or rubs. RESPIRATORY: Clear to auscultation. Breath sounds equal bilaterally. No wheezes, rales, or rhonchi. GASTROINTESTINAL: Abdomen soft, non-tender, nondistended. EXTREMITIES: No edema or joint tenderness. BACK: Nontender without deformity or crepitance. No flank tenderness. NEURO: AOx3. SKIN: No rash or erythema of visible areas Initial Vital Signs Initial Vital Signs: Vital Signs Temperature 98.2 F 02/24/22 20:19 Pulse Rate 64 02/24/22 20:19 Respiratory Rate 19 02/24/22 20:19 Blood Pressure 143/82 H 02/24/22 20:19 Pulse Oximetry 97 02/24/22 20:19 Oxygen Delivery Method 02/24/22 20:19 Scores NIH Stroke Scale Level of Conciousness: Alert, keenly responsive Ask month/age: Answers both questions correctly. Open/close eyes, close hand: Performs both tasks correctly Best gaze horizontal: Normal Visual matthews: No visual loss Facial palsy: Normal symetrical movement Left arm drift: No drift for full 10 sec Right arm drift: No drift for full 10 sec Left leg drift: No drift for full 5 sec Right leg drift: No drift for full 5 sec Limb ataxia: Absent Sensory on face/arms/legs: Normal, no sensory loss Best language: Mild to moderate, slurs some words Dysarthria: Normal Extinction or inattention: No abnormality Total NIH Stroke scale score: 1 Course Orders Ordered: ED Orders 02/24/22 20:[address] angio head and neck Stat 02/24/22 20:11 Complete Blood Count AUTO DIFF Stat Comprehensive Metabolic Panel Stat Partial Thromboplastin Time Stat Prothrombin Time INR Stat 02/24/22 20:22 COVID19 -Nasal RAPID/Pre-Proc Stat 02/24/22 20:32 EKG-12 Lead Stat 02/24/22 21:51 Urine Drug Screen, Rapid Stat Acetaminophen (Acetaminophen 325 Mg Tablet) 650 mg PO Q6HR PRN PRN Reason: Fever/Mild Pain (1-3) Aspirin (Aspirin Ec 81 Mg Tablet) 81 mg PO BID [facility] Atorvastatin Calcium (Atorvastatin 20 Mg Tablet) 40 mg PO BEDTIME KHALIF Last Admin: 02/25/22 00:19 Dose: 40 mg Documented By: BOB Clopidogrel Bisulfate (Clopidogrel 75 Mg Tablet) 75 mg PO DAILY [facility] Enoxaparin Sodium (Enoxaparin 40 Mg/0.4 Ml Syringe) 40 mg SUBCUT DAILY KHALIF Metoprolol Succinate (Metoprolol Er 25 Mg Tablet) 25 mg PO BEDTIME KHALIF Sodium Chloride (Sodium Chloride 0.9% Flush) 10 ml IV PRN PRN PRN Reason: Flush Sodium Chloride (Sodium Chloride 0.9% Flush) 10 ml IV BID KHALIF Discontinued Medications Aspirin (Aspirin 81 Mg Chew Tab) 324 mg PO NOW ONE Stop: 02/24/22 21:50 Last Admin: 02/24/22 23:08 Dose: Not Given Documented By: [facility] Aspirin (Aspirin 81 Mg Chew Tab) 324 mg PO NOW ONE Stop: 02/24/22 22:23 Last Admin: 02/24/22 22:26 Dose: 324 mg Documented By: EB Sodium Chloride (Normal Saline 0.9%) 1,000 mls @ 150 mls/hr IV CONT KHALIF Last Admin: 02/24/22 23:08 Dose: Not Given Documented By: [facility] Non-Formulary Medication (Rosuvastatin) 20 mg PO BEDTIME KHALIF Last Admin: 02/24/22 23:39 Dose: Not Given Documented By: [facility] Consultations Consultation #1: call to [facility] Code Stroke. I have spoken with Dr. Guy, whom requests to evaluate patient, concerned that expressive aphasia in absence of other symptoms is concerning, requests hold off on TPA for now. Time: 20:23 Consultation #2: over duration of visit patient symptoms improved, in fact, before Neuro was able to evaluate patient his aphasia had resolved. We share the opinion that TPA is no longer indicated, patient and share this opinion. Vital Signs Vital signs: Vital Signs - 8 hr 02/24/22 20:19 02/24/22 20:22 02/24/22 20:23 Temperature 98.2 F Pulse Rate 64 64 Respiratory Rate 19 Blood Pressure 143/82 H 143/82 H Pulse Oximetry 97 96 Oxygen Delivery Method Room Air 02/24/22 20:23 02/24/22 20:30 02/24/22 20:30 Temperature Pulse Rate 66 64 Respiratory Rate 19 24 Blood Pressure 149/66 H Pulse Oximetry 95 Oxygen Delivery Method 02/24/22 21:00 02/24/22 21:00 02/24/22 21:30 Temperature Pulse Rate 61 Respiratory Rate 22 Blood Pressure 139/70 129/66 Pulse Oximetry 96 Oxygen Delivery Method 02/24/22 21:30 02/24/22 22:00 02/24/22 22:00 Temperature Pulse Rate 61 60 Respiratory Rate 24 25 H Blood Pressure 142/68 H Pulse Oximetry 96 96 Oxygen Delivery Method MDM - Neuro Symptoms/Deficit Lab Data Result diagrams: 02/24/22 20:11 02/24/22 20:11 Labs: Lab Results 02/24/22 02/24/22 02/24/22 Range/Units 20:11 20:11 20:11 WBC 6.3 (4.5-11.0) X10^3/uL RBC 4.73 (4.5-5.9) X10^6/uL Hgb 14.7 (13.5-17.5) g/dL Hct 43.4 (41-53) % MCV 91.8 (80-100) fL MCH 31.0 (26-34) PG MCHC 33.8 (30-36) % RDW 14.0 (11.6-14.8) % Plt Count 144 L (150-400) X10^3/uL Neut % (Auto) 61.0 (50-75) % Lymph % (Auto) 25.2 (25-40) % [place] % (Auto) 11.7 (3-14) % Eos % (Auto) 1.6 L (2-4) % Baso % (Auto) 0.5 (0-2) % Neut # (Auto) 3800 (3733-5999) /uL Lymph # (Auto) 1600 (7485-6420) /uL [place] # (Auto) 700 (0-900) /uL Eos # (Auto) 100 (0-450) /uL Baso # (Auto) 0 (0-100) /uL PT 11.7 (10.1-12.7) SECONDS INR 1.1 (0.9-1.3) APTT 29 (26.4-36.2) SECONDS Sodium 141 (137-145) mmol/L Potassium 4.1 (3.4-5.1) mmol/L Chloride 104 (98-107) mmol/L Carbon Dioxide 28 (22-32) mmol/L BUN 16 (9-20) mg/dL Creatinine 0.91 (0.66-1.25) mg/dL Estimated GFR > 60 (>60) mL/min BUN/Creatinine Ratio 17.6 (6-22) Glucose 101 (80-110) mg/dL Hemoglobin A1c (4.0-6.0) % Calcium 8.8 (8.4-10.2) mg/dL Magnesium (1.6-2.3) mg/dL Total Bilirubin 0.3 (0.2-1.3) mg/dL AST 35 (17-59) IU/L ALT 23 (<50) IU/L Alkaline Phosphatase 85 (38-126) U/L Total Protein 7.4 (6.3-8.2) g/dL Albumin 4.5 (3.5-5.0) g/dL Globulin 2.9 (1.7-4.1) g/dL Albumin/Globulin Ratio 1.6 (1.0-2.8) U Opiates 300ng/mL cut (Negative) Ur Oxycodone Screen (Negative) Urine Methadone Screen (Negative) Ur Barbiturates Screen (Negative) U Tricyclic Antidepress (Negative) Ur Phencyclidine Scrn (Negative) Ur Amphetamines Screen (Negative) U Methamphetamines Scrn (Negative) Ur MDMA Scrn (Ecstasy) (Negative) U Benzodiazepines Scrn (Negative) Urine Cocaine Screen (Negative) U Marijuana (THC) Screen (Negative) SARS-CoV-2 (PCR) (Negative) 02/24/22 02/24/22 02/24/22 Range/Units 20:11 20:11 20:22 WBC (4.5-11.0) X10^3/uL RBC (4.5-5.9) X10^6/uL Hgb (13.5-17.5) g/dL Hct (41-53) % MCV (80-100) fL MCH (26-34) PG MCHC (30-36) % RDW (11.6-14.8) % Plt Count (150-400) X10^3/uL Neut % (Auto) (50-75) % Lymph % (Auto) (25-40) % [place] % (Auto) (3-14) % Eos % (Auto) (2-4) % Baso % (Auto) (0-2) % Neut # (Auto) (3209-3836) /uL Lymph # (Auto) (3695-3267) /uL [place] # (Auto) (0-900) /uL Eos # (Auto) (0-450) /uL Baso # (Auto) (0-100) /uL PT (10.1-12.7) SECONDS INR (0.9-1.3) APTT (26.4-36.2) SECONDS Sodium (137-145) mmol/L Potassium (3.4-5.1) mmol/L Chloride (98-107) mmol/L Carbon Dioxide (22-32) mmol/L BUN (9-20) mg/dL Creatinine (0.66-1.25) mg/dL Estimated GFR (>60) mL/min BUN/Creatinine Ratio (6-22) Glucose (80-110) mg/dL Hemoglobin A1c 5.4 (4.0-6.0) % Calcium (8.4-10.2) mg/dL Magnesium 2.3 (1.6-2.3) mg/dL Total Bilirubin (0.2-1.3) mg/dL AST (17-59) IU/L ALT (<50) IU/L Alkaline Phosphatase (38-126) U/L Total Protein (6.3-8.2) g/dL Albumin (3.5-5.0) g/dL Globulin (1.7-4.1) g/dL Albumin/Globulin Ratio (1.0-2.8) U Opiates 300ng/mL cut (Negative) Ur Oxycodone Screen (Negative) Urine Methadone Screen (Negative) Ur Barbiturates Screen (Negative) U Tricyclic Antidepress (Negative) Ur Phencyclidine Scrn (Negative) Ur Amphetamines Screen (Negative) U Methamphetamines Scrn (Negative) Ur MDMA Scrn (Ecstasy) (Negative) U Benzodiazepines Scrn (Negative) Urine Cocaine Screen (Negative) U Marijuana (THC) Screen (Negative) SARS-CoV-2 (PCR) Negative (Negative) 02/24/22 Range/Units 21:51 WBC (4.5-11.0) X10^3/uL RBC (4.5-5.9) X10^6/uL Hgb (13.5-17.5) g/dL Hct (41-53) % MCV (80-100) fL MCH (26-34) PG MCHC (30-36) % RDW (11.6-14.8) % Plt Count (150-400) X10^3/uL Neut % (Auto) (50-75) % Lymph % (Auto) (25-40) % [place] % (Auto) (3-14) % Eos % (Auto) (2-4) % Baso % (Auto) (0-2) % Neut # (Auto) (6896-3958) /uL Lymph # (Auto) (7423-4619) /uL [place] # (Auto) (0-900) /uL Eos # (Auto) (0-450) /uL Baso # (Auto) (0-100) /uL PT (10.1-12.7) SECONDS INR (0.9-1.3) APTT (26.4-36.2) SECONDS Sodium (137-145) mmol/L Potassium (3.4-5.1) mmol/L Chloride (98-107) mmol/L Carbon Dioxide (22-32) mmol/L BUN (9-20) mg/dL Creatinine (0.66-1.25) mg/dL Estimated GFR (>60) mL/min BUN/Creatinine Ratio (6-22) Glucose (80-110) mg/dL Hemoglobin A1c (4.0-6.0) % Calcium (8.4-10.2) mg/dL Magnesium (1.6-2.3) mg/dL Total Bilirubin (0.2-1.3) mg/dL AST (17-59) IU/L ALT (<50) IU/L Alkaline Phosphatase (38-126) U/L Total Protein (6.3-8.2) g/dL Albumin (3.5-5.0) g/dL Globulin (1.7-4.1) g/dL Albumin/Globulin Ratio (1.0-2.8) U Opiates 300ng/mL cut Negative (Negative) Ur Oxycodone Screen Negative (Negative) Urine Methadone Screen Negative (Negative) Ur Barbiturates Screen Negative (Negative) U Tricyclic Antidepress Negative (Negative) Ur Phencyclidine Scrn Negative (Negative) Ur Amphetamines Screen Negative (Negative) U Methamphetamines Scrn Negative (Negative) Ur MDMA Scrn (Ecstasy) Negative (Negative) U Benzodiazepines Scrn Negative (Negative) Urine Cocaine Screen Negative (Negative) U Marijuana (THC) Screen Negative (Negative) SARS-CoV-2 (PCR) (Negative) Point of Care Testing Glucose POC 106 Urine Dip Bedside Urine Glucose Negative Bedside Urine Bilirubin - Negative Bedside Urine Ketone - Negative Urine Specific [place] 1.015 Bedside Urine Occult Blood - Negative Bedside Urine pH 6.0 Bedside Urine Protein - Negative Bedside Urine Urobilinogen - Negative Bedside Urine Nitrite - Negative Bedside Urine Leukocytes - Negative Esterase Imaging Data CT scan - head: Radiologist's Impression: [address] [id number] ReportSigned Patient: Barbara Carballo QMR#: [id number]: 06/08/1992Acct:[id number]/Sex: 29 / FDate of Service: 02/24/22Loc: EDAccession Number: [id number] Procedure: XR chest 1V Ordering Provider: Adolfo Garcia MD PROCEDURE: XR CHEST 1V INDICATIONS: chest pain TECHNIQUE: One view of the chest was acquired. COMPARISON: None. FINDINGS: Surgical changes and devices: None. Lungs and pleura: Lungs are clear. No pleural effusions or pneumothorax. Mediastinum: Mediastinal contours appear normal. Heart size is normal. Bones and chest wall: No suspicious bony lesions. Overlying soft tissues appear unremarkable. IMPRESSION: No acute cardiopulmonary abnormality. Dictated by: Julio Laughlin M.D. on 02/24/2022 at 19:04 Approved by: Julio Laughlin M.D. on 02/24/2022 at 19:05 Discharge Plan Departure Patient Disposition: Admitted as Observation Clinical Impression: Brain TIA Admit Date/Time: 02/24/22 22:04 Admit Provider: Michelle Choi
[2022-02-24 20:33] LABS: Add Manual Diff / Slide Review NO; Basophils Absolute Auto 0 /uL (0-100); Basophils Percent Auto 0.5 % (0-2); Eosinophils Absolute Auto 100 /uL (0-450); Eosinophils Percent Auto 1.6 % (2-4); Hematocrit 43.4 % (41-53); Hemoglobin 14.7 g/dL (13.5-17.5); Lymphocytes Absolute Auto 1600 /uL (1100-4500); Lymphocytes Percent Auto 25.2 % (25-40); Mean Corpuscular HGB Conc 33.8 % (30-36); Mean Corpuscular Volume 91.8 fL (80-100); Monocytes Absolute Auto 700 /uL (0-900); Monocytes Percent Auto 11.7 % (3-14); Neutrophils Absolute Auto 3800 /uL (1500-7000); Platelet Count 144 X10^3/uL (150-400); Red Blood Cell Count 4.73 X10^6/uL (4.5-5.9); White Blood Cell Count 6.3 X10^3/uL (4.5-11.0)
--- NOTE | 2022-02-24 20:35 | PC.NURSE ---
Pt brought in pt medication Repatha, which is a twice monthly injection used to treat hypercholesterolemia, but is not considered a blood thinner medication. Provider aware. Pt , Valerie, at bedside and provider talking with her now.
[2022-02-24 20:46] LABS: COVID19 -Nasal RAPID Negative (Negative)
[2022-02-24 20:50] LABS: Alanine Aminotransferase 23 IU/L (<50); Albumin 4.5 g/dL (3.5-5.0); Albumin Globulin Ratio 1.6 (1.0-2.8); Alkaline Phosphatase 85 U/L (38-126); Aspartate Aminotransferase 35 IU/L (17-59); BUN Creatinine Ratio 17.6 (6-22); Bilirubin Total 0.3 mg/dL (0.2-1.3); Blood Urea Nitrogen 16 mg/dL (9-20); Calcium 8.8 mg/dL (8.4-10.2); Carbon Dioxide 28 mmol/L (22-32); Chloride 104 mmol/L (98-107); Estimated Glomerular Filt Rate > 60 mL/min (>60); Globulin 2.9 g/dL (1.7-4.1); Glucose 101 mg/dL (80-110); HEMOLYSIS < 15 (0-50); Potassium 4.1 mmol/L (3.4-5.1); Sodium 141 mmol/L (137-145); Total Protein 7.4 g/dL (6.3-8.2)
[2022-02-24 21:07] LABS: INR 1.1 (0.9-1.3); Prothrombin Time 11.7 SECONDS (10.1-12.7)
[2022-02-24 21:09] LABS: PTT Partial Thromboplastin Tim 29 SECONDS (26.4-36.2)
[2022-02-24 21:57] LABS: Ur Creatinine Normal (Normal); Ur Specific Gravity Normal (Normal); Urine pH Normal (Normal)
[2022-02-24 21:58] LABS: UR Morphine/Opiate cutoff 300 Negative (Negative); Urine Amphetamines Negative (Negative); Urine Barbiturates Negative (Negative); Urine Benzodiazepines Negative (Negative); Urine Cocaine Negative (Negative); Urine MDMA Negative (Negative); Urine Methadone Negative (Negative); Urine Methamphetamines Negative (Negative); Urine Oxycodone Negative (Negative); Urine Phencyclidine Negative (Negative); Urine Tetrahydrocannabinol Negative (Negative); Urine Tricyclic Antidepressant Negative (Negative)
[2022-02-24] MEDS: ASPIRIN 81 MG CHEW TAB 324 MG PO (22:26)
[2022-02-24 22:42] LABS: Magnesium 2.3 mg/dL (1.6-2.3)
[2022-02-24 22:53] LABS: Hemoglobin A1C% w Est Avg Glu 5.4 % (4.0-6.0)
--- NOTE | 2022-02-24 23:32 | P.HP_ITS ---
History of Present Illness History of Present Illness Date Patient Seen: 02/24/22 Time Patient Seen: 23:32 Chief complaint: Stroke Narrative: Yaya Lemos is an 82 male nonsmoker with history of familial hypertriglyceridemia, coronary artery disease, 2 bypass surgeries and 2 prior stents presented to the ED for evaluation of neurologic symptoms that started at 7:35 p.m..? He is reported to have been in his normal state of health and playing pinnicle when he started having a sudden onset difficulty with speech, trouble communicating and finding words.? He denies any other symptoms such as headaches, vision changes, dizziness, weakness or lightheadedness.? He denies any facial weakness or extremity numbness, tingling or weakness.? Denies dysurea, diarrhea or constipation. He is had no recent travel, illness or traumatic injury.? Stroke protocol was activated however by the time the stroke telemedicine service was able to speak to the patient, his symptoms resolved and a decision was made not to give him tPA. CTA of the head neck indicate asymmetric calcification at the proximal left ICA compared to the right but was less than 50%. Head CT was negative for any acute intracranial pathology. He is afebrile, blood pressure 120/66, heart rate 64, respiratory rate 16, oxygen saturation of 98% on room air he weighs 83.9 kg with a BMI of 26.5. CBC, BMP, UA and UDS are all unremarkable, and COVID-19 PCR is negative. Patient is a regular patient of Dr. Riri Crandall and was last seen on October 24 of this year. He apparently underwent nuclear stress testing in 2020 and he also underwent echocardiogram imaging and at that time is it EF was 40-45% with stage II diastolic heart failure. It is not known whether he has undergone ECHO since then and will confirm in the morning. 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 Mother Cancer Social History: household members spouse Prior Living Arrangements House Safety & Behavioral: Feels Safe in Current Yes Environment Been Physically Hurt or No Threatened By a Person Tobacco & Substance use: Smoking Status Never smoker alcohol intake frequency holiday/special occasion Substance Use Type does not use Meds Home Medications and Allergies Home Medications Medication Instructions Recorded Confirmed Type aspirin 81 mg tablet,delayed 81 mg PO BID 01/28/18 02/24/22 History release metoprolol succinate 25 mg 25 mg PO BEDTIME 01/28/18 02/24/22 History tablet,extended release 24 hr naproxen sodium 220 mg tablet 220 mg PO PRN PRN Pain, Mild 01/28/18 02/24/22 History (Aleve) rosuvastatin 40 mg tablet 20 mg PO BEDTIME 01/28/18 02/24/22 History nitroglycerin 0.4 mg sublingual 0.4 mg sublingual Q5-15M PRN Chest 10/21/19 02/24/22 Rx tablet (Nitrostat) Pain #20 tabs evolocumab 140 mg/mL subcutaneous 1 ea SUBCUT USEASDIRECTD 02/24/22 02/25/22 H istory pen injector (Robbie Nunez) isosorbide mononitrate 30 mg 1 tab PO DAILY 02/24/22 02/24/22 History tablet,extended release 24 hr metoprolol succinate 25 mg mg PO 02/25/22 History tablet,extended release 24 hr Allergies Allergy/AdvReac Type Severity Reaction Status Date / Time No Known Drug Allergies Allergy Verified 02/24/22 20:37 Review of Systems Review of Systems ROS: Yes All systems reviewed with the patient and are negative except as otherwise documented Exam Vital Signs (past 8 hours): - 02/24/22 20:19 02/24/22 20:22 02/24/22 20:23 Temperature 98.2 F Pulse Rate 64 64 Respiratory Rate 19 Blood Pressure 143/82 H 143/82 H Pulse Oximetry 97 96 Oxygen Delivery Method Room Air Oxygen Flow Rate 02/24/22 20:23 02/24/22 20:30 02/24/22 20:30 Temperature Pulse Rate 66 64 Respiratory Rate 19 24 Blood Pressure 149/66 H Pulse Oximetry 95 Oxygen Delivery Method Oxygen Flow Rate 02/24/22 21:00 02/24/22 21:00 02/24/22 21:30 Temperature Pulse Rate 61 Respiratory Rate 22 Blood Pressure 139/70 129/66 Pulse Oximetry 96 Oxygen Delivery Method Oxygen Flow Rate 02/24/22 21:30 02/24/22 22:00 02/24/22 22:00 Temperature Pulse Rate 61 60 Respiratory Rate 24 25 H Blood Pressure 142/68 H Pulse Oximetry 96 96 Oxygen Delivery Method Oxygen Flow Rate 02/24/22 22:30 02/24/22 22:30 02/24/22 22:45 Temperature 97.9 F Pulse Rate 60 55 L Respiratory Rate 17 18 Blood Pressure 148/66 H 139/53 L Pulse Oximetry 95 96 Oxygen Delivery Method Oxygen Flow Rate 0 Oxygen Delivery Method Room Air Oxygen Flow Rate 0 Narrative Exam Narrative: Gen: Alert, oriented, well-developed 82 y.o. male, NAD HEENT: normocephalic, atraumatic, conjunctiva clear, sclera non-icteric, oral mucosa pink and moist Neck: supple, full ROM, no JVD, trachea is midline Resp: Lungs CTA, non-labored breathing CV: RRR, no murmur or rubs Abd: soft, non-tender, normoactive BTs Skin: no lesions or rashes, dry and intact Neuro: Alert and oriented X 4 w/no focal deficits. Speech clear and coherent, no facial asymmetry. Extremities: moves all 4 extremities, is ambulatory, negative Balbina?s sign Psyche: normal mood and affect. Objective Labs Result Diagrams: 02/24/22 20:11 02/24/22 20:11 Labs: Laboratory Results - last 24 hr 02/24/22 02/24/22 02/24/22 20:11 20:11 20:11 WBC 6.3 RBC 4.73 Hgb 14.7 Hct 43.4 MCV 91.8 MCH 31.0 MCHC 33.8 RDW 14.0 Plt Count 144 L Neut % (Auto) 61.0 Lymph % (Auto) 25.2 [place] % (Auto) 11.7 Eos % (Auto) 1.6 L Baso % (Auto) 0.5 Neut # (Auto) 3800 Lymph # (Auto) 1600 [place] # (Auto) 700 Eos # (Auto) 100 Baso # (Auto) 0 PT 11.7 INR 1.1 APTT 29 Sodium 141 Potassium 4.1 Chloride 104 Carbon Dioxide 28 BUN 16 Creatinine 0.91 Estimated GFR > 60 BUN/Creatinine Ratio 17.6 Glucose 101 Hemoglobin A1c Calcium 8.8 Magnesium Total Bilirubin 0.3 AST 35 ALT 23 Alkaline Phosphatase 85 Total Protein 7.4 Albumin 4.5 Globulin 2.9 Albumin/Globulin Ratio 1.6 U Opiates 300ng/mL cut Ur Oxycodone Screen Urine Methadone Screen Ur Barbiturates Screen U Tricyclic Antidepress Ur Phencyclidine Scrn Ur Amphetamines Screen U Methamphetamines Scrn Ur MDMA Scrn (Ecstasy) U Benzodiazepines Scrn Urine Cocaine Screen U Marijuana (THC) Screen SARS-CoV-2 (PCR) 02/24/22 02/24/22 02/24/22 20:11 20:11 20:22 WBC RBC Hgb Hct MCV MCH MCHC RDW Plt Count Neut % (Auto) Lymph % (Auto) [place] % (Auto) Eos % (Auto) Baso % (Auto) Neut # (Auto) Lymph # (Auto) [place] # (Auto) Eos # (Auto) Baso # (Auto) PT INR APTT Sodium Potassium Chloride Carbon Dioxide BUN Creatinine Estimated GFR BUN/Creatinine Ratio Glucose Hemoglobin A1c 5.4 Calcium Magnesium 2.3 Total Bilirubin AST ALT Alkaline Phosphatase Total Protein Albumin Globulin Albumin/Globulin Ratio U Opiates 300ng/mL cut Ur Oxycodone Screen Urine Methadone Screen Ur Barbiturates Screen U Tricyclic Antidepress Ur Phencyclidine Scrn Ur Amphetamines Screen U Methamphetamines Scrn Ur MDMA Scrn (Ecstasy) U Benzodiazepines Scrn Urine Cocaine Screen U Marijuana (THC) Screen SARS-CoV-2 (PCR) Negative 02/24/22 21:51 WBC RBC Hgb Hct MCV MCH MCHC RDW Plt Count Neut % (Auto) Lymph % (Auto) [place] % (Auto) Eos % (Auto) Baso % (Auto) Neut # (Auto) Lymph # (Auto) [place] # (Auto) Eos # (Auto) Baso # (Auto) PT INR APTT Sodium Potassium Chloride Carbon Dioxide BUN Creatinine Estimated GFR BUN/Creatinine Ratio Glucose Hemoglobin A1c Calcium Magnesium Total Bilirubin AST ALT Alkaline Phosphatase Total Protein Albumin Globulin Albumin/Globulin Ratio U Opiates 300ng/mL cut Negative Ur Oxycodone Screen Negative Urine Methadone Screen Negative Ur Barbiturates Screen Negative U Tricyclic Antidepress Negative Ur Phencyclidine Scrn Negative Ur Amphetamines Screen Negative U Methamphetamines Scrn Negative Ur MDMA Scrn (Ecstasy) Negative U Benzodiazepines Scrn Negative Urine Cocaine Screen Negative U Marijuana (THC) Screen Negative SARS-CoV-2 (PCR) Assessment & Plan Assessment & Plan narrative: Yaya Lemos is placed in observation for further workup of suspected TIA. TIA vs Stroke * Cardiac telemetry * NIH score greater than 5 no, NIH scoring and neuro checks q 4 hours * Dual antiplatelet therapy: No Yes initiate dual antiplatelet therapy with tao pidogrel 75 mg p.o. daily and aspirin 81 mg p.o. daily * MR stroke scheduled for 02/25 * Complete Echo with bubble study for 02/25 * ST evaluation Hypertension, normotensive with an admission bp of 143/83, present on admission * Well controlled on a beta-domenico and nitrate * Allow for permissive hypertension of 220/110 HR 60 to allow for brain perfusion * Allow for permissive hypertension for brain profusion of a systolic of 220 and a diastolic of 105. HLD, history of familial hypertriglyceridemia * Fasting lipid panel, pending for 0500 labs * Continue home dose of rosuvastatin 40 mg po at bedtime * Normally injects Evolucumab on the 1st and 15th of the month and is up to date Risk stratification * Fasting lipid panel pending for the morning * A1c is 5.4 % not diabetic VTE Prophylaxis: Wells risk score 0 [X]Enoxaparin 40 mg subQ once daily Bilateral SCDs Patient is placed into observation as his stay is not expected to exceed 2 midnights. FEN: IV fluids: saline lock, diet: heart healthy, labs: CBC, C/BMP, liver enzymes, Mag, PT/INR Consultants None Dispo: probable d/c to home Code status: Full code as discussed with the patient who identifies Valerie Bustillo as his surrogate and POA. [X] I have utilized all available immediate resources to obtain, update, or review of the patient's current medications COVID-19 COVID-19 status: Negative Result date/Date tested (Pos, Neg/Pending): 02/25/22 Scores Wells' Criteria for PE Clinical signs and symptoms of DVT: No PE is #1 Dx or equally likely: No Heart rate > 100: No Immobilization at least 3 days or surg in previous 4 weeks: No History of PE or DVT: No Hemoptysis: No Malignancy w/Treatment within 6 months or palliative: No Wells' PE Score total: 0 Quality VTE Deep Vein Thrombosis/Pulmonary Embolism Present on Admission: No MIPS - Admit I confirm the patient?s Advance Care Plan is present, Code status is documented, Surrogate decision maker is in patient?s record [If Yes, STOP here]: Yes MIPS - DC The patient has current or prior documentation of left ventricular ejection fraction (LVEF) less than 40%, or moderate or severely depressed left ventricular systolic function.: Yes B. The patient was prescribed or already taking a beta-domenico. [If Yes to Both A & B, STOP here]: Yes Patient not prescribed/taking SADIE or ARB for medical/patient/system reason(s) including (ex: allergy, intolerance, contraindication).: Unknown reason, will confirm with his market risk specialist in the morning.
[2022-02-25] VITALS: BP 120/66; PULSE 64; RESP 16; TEMP 36.9; O2SAT 98
[2022-02-25] MEDS: ATORVASTATIN 20 MG TABLET 40 MG PO (00:19)
--- NOTE | 2022-02-25 00:33 | PC.ADMIT ---
[email or web address] Admission Note: The patient,Yaya Lemos,82 y/o, was given written information regarding hospital policies, unit procedures and contact persons. Patient's smoking status: Never smoker. Vital Signs - 8 hr 02/24/22 20:19 02/24/22 20:22 02/24/22 20:23 Temperature 98.2 F Pulse Rate 64 64 Respiratory Rate 19 Blood Pressure 143/82 H 143/82 H Pulse Oximetry 97 96 Oxygen Delivery Method Room Air Oxygen Flow Rate 02/24/22 20:23 02/24/22 20:30 02/24/22 20:30 Temperature Pulse Rate 66 64 Respiratory Rate 19 24 Blood Pressure 149/66 H Pulse Oximetry 95 Oxygen Delivery Method Oxygen Flow Rate 02/24/22 21:00 02/24/22 21:00 02/24/22 21:30 Temperature Pulse Rate 61 Respiratory Rate 22 Blood Pressure 139/70 129/66 Pulse Oximetry 96 Oxygen Delivery Method Oxygen Flow Rate 02/24/22 21:30 02/24/22 22:00 02/24/22 22:00 Temperature Pulse Rate 61 60 Respiratory Rate 24 25 H Blood Pressure 142/68 H Pulse Oximetry 96 96 Oxygen Delivery Method Oxygen Flow Rate 02/24/22 22:30 02/24/22 22:30 02/24/22 22:45 Temperature 97.9 F Pulse Rate 60 55 L Respiratory Rate 17 18 Blood Pressure 148/66 H 139/53 L Pulse Oximetry 95 96 Oxygen Delivery Method Oxygen Flow Rate 0 02/25/22 00:29 02/25/22 00:00 Temperature 98.4 F Pulse Rate 64 Respiratory Rate 16 Blood Pressure 120/66 Pulse Oximetry 98 Oxygen Delivery Method Room Air Oxygen Flow Rate 0 Patient admitted to room 212 from ER per stretcher but transferred into bed with SBA. Is alert and oriented w/NIH of 0 Breath sounds CTA with RA sat of 98%; placed on continuous oximetry. HRR w/telemetry reading of SR w/BBB. Denies nausea. BT present and abdomen is soft. Denies dysuria, frequency or urgency with urination. Independent with mobility. Denies chest pain or SOB. Denies pain/discomfort. Bilateral calf SCD's applied. Fall risk score is low. Oriented to call light and bed controls.
[2022-02-25 06:17] VITALS: BP 129/67; PULSE 57; RESP 24; TEMP 36; O2SAT 96
[2022-02-25 07:00] LABS: Add Manual Diff / Slide Review NO; Basophils Absolute Auto 0 /uL (0-100); Basophils Percent Auto 0.5 % (0-2); Eosinophils Absolute Auto 100 /uL (0-450); Eosinophils Percent Auto 1.9 % (2-4); Hematocrit 40.6 % (41-53); Hemoglobin 13.8 g/dL (13.5-17.5); Lymphocytes Absolute Auto 1000 /uL (1100-4500); Lymphocytes Percent Auto 19.2 % (25-40); Mean Corpuscular HGB Conc 33.8 % (30-36); Mean Corpuscular Hemoglobin 31.2 PG (26-34); Mean Corpuscular Volume 92.2 fL (80-100); Monocytes Absolute Auto 700 /uL (0-900); Monocytes Percent Auto 12.8 % (3-14); Neutrophils Absolute Auto 3500 /uL (1500-7000); Neutrophils Percent Auto 65.6 % (50-75); Platelet Count 121 X10^3/uL (150-400); Red Blood Cell Count 4.41 X10^6/uL (4.5-5.9); Red Cell Distribution Width 14.1 % (11.6-14.8); White Blood Cell Count 5.3 X10^3/uL (4.5-11.0)
[2022-02-25 07:15] LABS: Alanine Aminotransferase 19 IU/L (<50); Albumin 3.8 g/dL (3.5-5.0); Albumin Globulin Ratio 1.5 (1.0-2.8); Alkaline Phosphatase 74 U/L (38-126); Aspartate Aminotransferase 25 IU/L (17-59); BUN Creatinine Ratio 16.5 (6-22); Bilirubin Total 0.3 mg/dL (0.2-1.3); Bilirubin Unconjugated 0.3 mg/dL (0.0-1.1); Blood Urea Nitrogen 14 mg/dL (9-20); Calcium 8.2 mg/dL (8.4-10.2); Carbon Dioxide 27 mmol/L (22-32); Chloride 109 mmol/L (98-107); Cholesterol 75 mg/dL (140-199); Estimated Glomerular Filt Rate > 60 mL/min (>60); Globulin 2.5 g/dL (1.7-4.1); Glucose 108 mg/dL (80-110); HDL Cholesterol 45 mg/dL (40-60); HEMOLYSIS < 15 (0-50); LDL Cholesterol Calculated 12 mg/dL (<100); Potassium 4.2 mmol/L (3.4-5.1); Sodium 139 mmol/L (137-145); Total Protein 6.3 g/dL (6.3-8.2); Triglycerides 91 mg/dL (35-150)
[2022-02-25 08:05] VITALS: BP 143/59; PULSE 65; RESP 18; TEMP 36.3; O2SAT 95
--- NOTE | 2022-02-25 08:33 | DI.MRI.S_ITS ---
PROCEDURE: MR HEAD/BRAIN WO CON INDICATIONS: Expressive aphasia, ?TIA TECHNIQUE: Non-contrast axial T1 spin echo, axial T2 fast spin echo, sagittal and axial FLAIR, coronal T2 fast spin echo, axial gradient echo, axial diffusion and ADC through the brain. COMPARISON: [facility], CT, CT STROKE, 02/24/2022, 20:12. [facility], CT, CT ANGIO HEAD AND NECK, 02/24/2022, 20:12. FINDINGS: Image quality: Excellent. CSF spaces: Ventricles appear symmetric in size and shape. Basal cisterns are patent. No extra-axial fluid collections. Brain: There are at least 4 small foci of abnormal diffusion-weighted signal seen with left cerebral hemisphere, with associated dark signal on the ADC map. Minimal increased T2 weighted signal can be seen associated with these foci. No intracranial bleeds or mass effects. There is cerebral volume loss for age. There are periventricular and deep white matter chronic small vessel ischemic changes. Brainstem appears normal. No chronic ischemic insults. Normal intravascular flow voids are present. Skull and face: Calvarial bone marrow is normal in signal. Orbits are normal. Sinuses: Sinuses and mastoids are clear. IMPRESSION: Small foci of subacute infarction can be seen involving the left cerebral hemisphere. The appearance is consistent with an embolic phenomenon. Dictated by: Jesus Mao M.D. on 02/25/2022 at 8:11 Approved by: Jesus Mao M.D. on 02/25/2022 at 8:13
--- NOTE | 2022-02-25 08:43 | PM.PN.1 ---
Exam Vital Signs (past 8 hours): - 02/25/22 06:17 02/25/22 08:05 Temperature 96.8 F L 97.4 F L Pulse Rate 57 L 65 Respiratory Rate 24 18 Blood Pressure 129/67 143/59 H Pulse Oximetry 96 95 Oxygen Flow Rate 0 0 Oxygen Delivery Method Room Air Oxygen Flow Rate 0 Narrative Exam Narrative: Gen: Alert, oriented, well-developed 82 y.o. male, NAD HEENT: normocephalic, atraumatic, conjunctiva clear, sclera non-icteric, oral mucosa pink and moist Neck: supple, full ROM, no JVD, trachea is midline Resp: Lungs CTA, non-labored breathing CV: RRR, no murmur or rubs Abd: soft, non-tender, normoactive BTs Skin: no lesions or rashes, dry and intact Neuro: Alert and oriented X 4 w/no focal deficits. Speech clear and coherent, no facial asymmetry. Extremities: moves all 4 extremities, is ambulatory, negative Balbina?s sign Psyche: normal mood and affect. Objective Labs Result Diagrams: 02/25/22 06:22 02/25/22 06:22 Labs: Laboratory Results - last 24 hr 02/24/22 02/24/22 02/24/22 20:11 20:11 20:11 WBC 6.3 RBC 4.73 Hgb 14.7 Hct 43.4 MCV 91.8 MCH 31.0 MCHC 33.8 RDW 14.0 Plt Count 144 L Neut % (Auto) 61.0 Lymph % (Auto) 25.2 [place] % (Auto) 11.7 Eos % (Auto) 1.6 L Baso % (Auto) 0.5 Neut # (Auto) 3800 Lymph # (Auto) 1600 [place] # (Auto) 700 Eos # (Auto) 100 Baso # (Auto) 0 PT 11.7 INR 1.1 APTT 29 Sodium 141 Potassium 4.1 Chloride 104 Carbon Dioxide 28 BUN 16 Creatinine 0.91 Estimated GFR > 60 BUN/Creatinine Ratio 17.6 Glucose 101 Hemoglobin A1c Calcium 8.8 Magnesium Total Bilirubin 0.3 Conjugated Bilirubin Unconjugated Bilirubin AST 35 ALT 23 Alkaline Phosphatase 85 Total Protein 7.4 Albumin 4.5 Globulin 2.9 Albumin/Globulin Ratio 1.6 Triglycerides Cholesterol LDL Cholesterol, Calc HDL Cholesterol U Opiates 300ng/mL cut Ur Oxycodone Screen Urine Methadone Screen Ur Barbiturates Screen U Tricyclic Antidepress Ur Phencyclidine Scrn Ur Amphetamines Screen U Methamphetamines Scrn Ur MDMA Scrn (Ecstasy) U Benzodiazepines Scrn Urine Cocaine Screen U Marijuana (THC) Screen SARS-CoV-2 (PCR) 02/24/22 02/24/22 02/24/22 20:11 20:11 20:22 WBC RBC Hgb Hct MCV MCH MCHC RDW Plt Count Neut % (Auto) Lymph % (Auto) [place] % (Auto) Eos % (Auto) Baso % (Auto) Neut # (Auto) Lymph # (Auto) [place] # (Auto) Eos # (Auto) Baso # (Auto) PT INR APTT Sodium Potassium Chloride Carbon Dioxide BUN Creatinine Estimated GFR BUN/Creatinine Ratio Glucose Hemoglobin A1c 5.4 Calcium Magnesium 2.3 Total Bilirubin Conjugated Bilirubin Unconjugated Bilirubin AST ALT Alkaline Phosphatase Total Protein Albumin Globulin Albumin/Globulin Ratio Triglycerides Cholesterol LDL Cholesterol, Calc HDL Cholesterol U Opiates 300ng/mL cut Ur Oxycodone Screen Urine Methadone Screen Ur Barbiturates Screen U Tricyclic Antidepress Ur Phencyclidine Scrn Ur Amphetamines Screen U Methamphetamines Scrn Ur MDMA Scrn (Ecstasy) U Benzodiazepines Scrn Urine Cocaine Screen U Marijuana (THC) Screen SARS-CoV-2 (PCR) Negative 02/24/22 02/25/22 02/25/22 21:51 06:22 06:22 WBC 5.3 RBC 4.41 L Hgb 13.8 Hct 40.6 L MCV 92.2 MCH 31.2 MCHC 33.8 RDW 14.1 Plt Count 121 L Neut % (Auto) 65.6 Lymph % (Auto) 19.2 L [place] % (Auto) 12.8 Eos % (Auto) 1.9 L Baso % (Auto) 0.5 Neut # (Auto) 3500 Lymph # (Auto) 1000 L [place] # (Auto) 700 Eos # (Auto) 100 Baso # (Auto) 0 PT INR APTT Sodium 139 Potassium 4.2 Chloride 109 H Carbon Dioxide 27 BUN 14 Creatinine 0.85 Estimated GFR > 60 BUN/Creatinine Ratio 16.5 Glucose 108 Hemoglobin A1c Calcium 8.2 L Magnesium 2.0 Total Bilirubin 0.3 Conjugated Bilirubin 0.0 Unconjugated Bilirubin 0.3 AST 25 ALT 19 Alkaline Phosphatase 74 Total Protein 6.3 Albumin 3.8 Globulin 2.5 Albumin/Globulin Ratio 1.5 Triglycerides 91 Cholesterol 75 L LDL Cholesterol, Calc 12 HDL Cholesterol 45 U Opiates 300ng/mL cut Negative Ur Oxycodone Screen Negative Urine Methadone Screen Negative Ur Barbiturates Screen Negative U Tricyclic Antidepress Negative Ur Phencyclidine Scrn Negative Ur Amphetamines Screen Negative U Methamphetamines Scrn Negative Ur MDMA Scrn (Ecstasy) Negative U Benzodiazepines Scrn Negative Urine Cocaine Screen Negative U Marijuana (THC) Screen Negative SARS-CoV-2 (PCR) [facility] Medical History (Updated 02/25/22 @ 01:41 by ARNALDO Gaspar) Actinic keratosis (Unknown) BPH (benign prostatic hyperplasia) (Unknown) Coronary artery disease involving coronary bypass graft of [place] heart without angina pectoris (07/22/15) Deep vein thrombosis (2011) Essential hypertension (07/22/15) Hearing loss (Unknown) Hx of myocardial infarction (2009) Mixed hyperlipidemia (07/22/15) 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 Mother Cancer Social History household members: spouse Smoking Status: Never smoker Assessment & Plan Assessment & Plan narrative: Yaya Lemos is placed in observation for further workup of suspected TIA. TIA vs Stroke -Cardiac telemetry -NIH score greater than 5 no, NIH scoring and neuro checks q 4 hours -Dual antiplatelet therapy: No Yes initiate dual antiplatelet therapy with clopidogrel 75 mg p.o. daily and aspirin 81 mg p.o. daily -MR stroke scheduled for 02/25 -Complete Echo with bubble study for 02/25 -PT evaluation Hypertension, normotensive with an admission bp of 143/83, present on admission -Well controlled on a beta-domenico and nitrate -restart after 24 hours to allow permissive hypertension HLD, history of familial hypertriglyceridemia -Fasting lipid panel shows triglycerides 91, total cholesterol 75, LDL 12 and HDL 45 -Continue home dose of rosuvastatin 40 mg po at bedtime -Normally injects Evolucumab on the and 15th of the month and is up to date Risk stratification -Fasting lipid panel pending for the morning -A1c is 5.4 %, not diabetic VTE Prophylaxis: Avoid anticoag due to DAPT and risk of hemorrhagic conversion. Bilateral SCDs placed. Dispo: Home in 1-2 days. Code status: Full code as discussed with the patient who identifies Valerie Bustillo as his surrogate and POA. [X] I have utilized all available immediate resources to obtain, update, or review of the patient's current medications COVID-19 COVID-19 status: Negative Result date/Date tested (Pos, Neg/Pending): 02/25/22 Time Spent With Patient Critical Care time: I spent a total of [] minutes of critical care time on this patient's care today; this time is exclusive of procedural time. Quality VTE Deep Vein Thrombosis/Pulmonary Embolism Present on Admission: No
[2022-02-25] MEDS: CLOPIDOGREL 75 MG TABLET PO (09:23)
[2022-02-25] MEDS: ASPIRIN EC 81 MG TABLET PO (09:23)
[2022-02-25] MEDS: SODIUM CHLORIDE 0.9% FLUSH 10 ML IV (09:28)
--- NOTE | 2022-02-25 10:00 | DI.ECHO.S_ITS ---
[facility] +---------+ : : [address] : [place] : : : : [id number] : : : : Phone: [phone]+ Echocardiogram Report + + :Name: ALDO DE LA O Study Date: 02/25/2022 Height: 70 in : :[facility] ReadingLocation: Weight: 185 lb : : Gender: Male BSA: 2.0 m2 : :: 1940 Age: 82 yrs BP: 139/53 mmHg: :Reason For Study: APHASIA : :Ordering Physician: Joesph LOPEZformed By: Rosette Singh : :Referring: DAR LOPEZ : + + Interpretation Summary The ejection fraction is estimated to be 35-40%. Grade II diastolic dysfunction. There is basal inferior wall severe hypokinesis. Right ventricular systolic function is mildly reduced. The left atrium is severely dilated. The right atrium is mild to moderately dilated. Injection of contrast documented no interatrial shunt. There is mild mitral regurgitation. There is mild tricuspid regurgitation. Pulmonary artery pressures cannot be estimated because of the lack of a measurable TR jet velocity. The ascending aorta is mildly enlarged. Compared to the prior study dated 01/19/2021, no significant change. Procedure: A two-dimensional transthoracic echocardiogram with color flow and Doppler was performed. The study quality was technically adequate. A saline contrast injection was performed to assess for cardiac shunting. Comparison is made with the echocardiogram of 01/19/2021. The heart rate ranged between 50-55 bpm during the study. Left Ventricle: The left ventricle is normal in size and wall thickness. The ejection fraction is estimated to be 35-40%. There is basal inferior wall severe hypokinesis. Grade II diastolic dysfunction. Right Ventricle: The right ventricle is normal size. Right ventricular systolic function is mildly reduced. Atria: The left atrium is severely dilated. The right atrium is mild to moderately dilated. Injection of contrast documented no interatrial shunt. Mitral Valve: The mitral valve leaflets appear mildly thickened, but open well. There is mild mitral regurgitation. Aortic Valve: There is moderate aortic valve sclerosis. There is discrete nodular thickening of the non- coronary cusp. The aortic valve is mildly calcified. There is no aortic valve stenosis. There is trace aortic regurgitation. Tricuspid Valve: The tricuspid valve is normal in structure and function. There is mild tricuspid regurgitation. Pulmonary artery pressures cannot be estimated because of the lack of a measurable TR jet velocity. Pulmonic Valve: The pulmonic valve leaflets are thin and pliable; valve motion is normal. There is trace pulmonic regurgitation. Great Vessels: The aortic root is normal size. The ascending aorta is mildly enlarged. The inferior vena cava was not well visualized. Pericardium/ Pleura There is no pericardial effusion. There is no pleural effusion. MMode/2D Measurements & Calculations LVIDd: 5.6 cm LVOT diam: 2.3 cm LVIDs: 4.9 cm Ao root diam: 3.8 cm FS: 14.1 % asc Aorta Diam: 4.0 cm EPSS: 1.9 cm Ao Arch Diam (Prox Trans): 2.5 cm IVSd: 0.75 cm LVPWd: 1.1 cm LV chavira. diameter/BSA (cm/m^2): 2.8 LV sys. diameter/BSA (cm/m^2): 2.4 LA A2 area: 27.1 cm2 RA long axis: 6.4 cm LA A4 area: 24.5 cm2 RA area: 18.1 cm2 LA length (vol): 5.9 cm RA vol: 43.8 ml LA vol: 96.2 ml RA : 21.7 ml/m2 LA vol index: 47.6 ml/m2 RVD1 (basal): 3.8 cm RVD2 (mid): 2.8 cm TAPSE: 1.4 cm Doppler Measurements & Calculations Ao V2 max: 163.5 cm/sec LVOT Max Dmitriy: 56.8 cm/sec Ao V2 mean: 115.0 cm/sec LV V1 max P.3 mmHg Ao max P.7 mmHg LV V1 VTI: 15.8 cm Ao mean P.0 mmHg JASMINE(I,D): 1.5 cm2 Ao V2 VTI: 41.8 cm JASMINE(V,D): 1.4 cm2 sev ratio: 0.38 JASMINE indexed to BSA (cm^2/m^2): 0.77 MV E max dmitriy: 79.8 cm/sec PA V2 max: 114.4 cm/sec MV A max dmitriy: 52.4 cm/sec PA V2 mean: 76.3 cm/sec MV E/A: 1.5 PA mean P.6 mmHg Lat Peak E' Dmitriy: 5.9 cm/sec PA pr(Accel): 34.5 mmHg E/E' lat: 13.4 MV dec time: 0.22 sec SVLVOT): 64.6 ml Reading Physician:04:56 PM
--- NOTE | 2022-02-25 10:57 | CM.DANOTE ---
DCP Assessment: Payor: Medicare PCP: MD Mauri Pt is an 82 y.o. M who presented to the ER by EMS for evaluation of neuro symptoms possible stroke. Pt has a history of CAD with 2 prior stents. Pt was in normal health until he started to have sudden onset of difficulty with speech and trouble communicating words. CT was ordered. Pt admitted under observation for further management and workup. DCP met with pt this morning to discuss discharge needs. Pt was in the room and they were sitting up playing a card game. Pt had to input his hearing aids so that he could hear DCP speak. DCP introduced herself and role. Pt states that they live together in a 1 story house in [place]. Pt denies any DME use and states that he still drives POV. Pt denies any discharge needs at this time. Pt spouse will be transporting pt back home upon discharge. Pt had an MRI this morning and results will need to be read and discussed to decide on when to discharge pt. White board was updated and instructed to call. DCP to continue to follow. P: Once patient is medically stable to discharge home, pt to discharge home via spouse POV. Romy Aquino RN/CELI Discharge Planning/Care Management CM Discharge Assessment Start: 02/25/22 10:56 Freq: Status: Active Protocol: Document 02/25/22 10:56 DONALD (Rec: 02/25/22 10:56 DONALD [id number]) Discharge Planning Assessment Assigned Pottery Decorator Romy Aquino RN/CELI Advance Directives? No History Provided By Patient Prior Living Arrangements House Household Members spouse Type of transporation used prior to Drives own vehicle admit Independent with ADL's Yes Is patient alert and oriented? Yes Caregiver for Another No Barriers to Discharge No Discharge Plan Home Referrals Initiated None needed Whiteboard Updated in Patient Room with Yes name and ext. # of Pottery Decorator Comment Instructed to call Review Status In Process Please Provide Date Initial DC 02/25/22 Assessment Was Performed Next Review Type Continued Stay Review
[2022-02-25 12:10] VITALS: BP 136/71; PULSE 59; RESP 18; TEMP 36.2; O2SAT 98
[2022-02-25 15:23] VITALS: BP 144/72; PULSE 59; RESP 18; TEMP 36.2; O2SAT 96
--- NOTE | 2022-02-25 18:01 | PC.NURSE ---
Discharge Note Patient A&O, VSS, RA, no complaints of pain/discomfort. Discharge instructions reviewed with patient and , all questions/concerns addressed. TELE/PIV discontinued. Patient able to dress self and pack all belongings. This RN unable to retrieve patient home medications from pharmacy due to pharmacy being closed. Patient agreeable to picking up prescriptions in am. Patient also reminded to sisal picker prescription from preferred pharmacy. All belongings taken by patient along with his discharge instructions. Patient taken down via wheelchair to POV.
--- NOTE | 2022-02-25 19:34 | P.DS_ITS ---
History of Present Illness History of Present Illness Date Patient Seen: 02/25/22 Time Patient Seen: 14:00 Chief complaint: Stroke Narrative: Yaya Lemos is an 82 male nonsmoker with history of familial hypertriglyceridemia, coronary artery disease, 2 bypass surgeries and 2 prior stents presented to the ED for evaluation of neurologic symptoms that started at 7:35 p.m..? He is reported to have been in his normal state of health and playing pinnicle when he started having a sudden onset difficulty with speech, trouble communicating and finding words.? He denies any other symptoms such as headaches, vision changes, dizziness, weakness or lightheadedness.? He denies any facial weakness or extremity numbness, tingling or weakness.? Denies dysurea, diarrhea or constipation. He is had no recent travel, illness or traumatic injury.? Stroke protocol was activated however by the time the stroke telemedicine service was able to speak to the patient, his symptoms resolved and a decision was made not to give him tPA.? CTA of the head neck indicate? asymmetric calcification at the proximal left ICA compared to the right but was less than 50%.? Head CT was negative for any acute intracranial pathology.? He is afebrile, blood pressure 120/66, heart rate 64, respiratory rate 16, oxygen saturation of 98% on room air he weighs 83.9 kg with a BMI of 26.5.? CBC, BMP, UA and UDS are all unremarkable, and COVID-19 PCR is negative. Patient is a regular patient of Dr. Riri Crandall and was last seen on October 24 of this year.? He apparently underwent nuclear stress testing in 2020 and he also underwent echocardiogram imaging and at that time is it EF was 40-45% with stage II diastolic heart failure.? It is not known whether he has undergone ECHO since then and will confirm in the morning. 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 MRI brain showed small subacute embolic strokes to left frontal lobe. He was placed on plavix for 21 days in addition to his Aspirin. He is already on crestor at max dose and repatha so these were continued. Echo showed unchanged EF 35-50% and no shunt. CTA neck showed less 50% stenosis of left carotid so US not done. Tele did not moss picker A- fib. His metal fabricating supervisor Dr. Crandall was contacted about the patient's admission. Can consider outpatient holter monitor or carotid US to further quantify left DON. Patient's speech deficits resolved completely and did not return so he was discharged home in good condition. >30 minutes was spent discharging this patient. Exam Vital Signs (past 8 hours): - 02/25/22 12:10 02/25/22 15:23 Temperature 97.2 F L 97.1 F L Pulse Rate 59 L 59 L Respiratory Rate 18 18 Blood Pressure 136/71 144/72 H Pulse Oximetry 98 96 Oxygen Flow Rate 0 0 Oxygen Delivery Method Room Air Oxygen Flow Rate 0 Narrative Exam Narrative: Gen: Alert, oriented, well-developed 82 y.o. male, NAD HEENT: normocephalic, atraumatic, conjunctiva clear, sclera non-icteric, oral mucosa pink and moist Neck: supple, full ROM, no JVD, trachea is midline Resp: Lungs CTA, non-labored breathing CV: RRR, no murmur or rubs Abd: soft, non-tender, normoactive BTs Skin: no lesions or rashes, dry and intact Neuro: Alert and oriented X 4 w/no focal deficits. Speech clear and coherent, no facial asymmetry. Extremities: moves all 4 extremities, is ambulatory, negative Balbina?s sign Psyche: normal mood and affect. Objective Imaging Echo: My impression: Echo 02/25/22 Interpretation Summary The ejection fraction is estimated to be 35-40%. Grade II diastolic dysfunction. There is basal inferior wall severe hypokinesis. Right ventricular systolic function is mildly reduced. The left atrium is severely dilated. The right atrium is mild to moderately dilated. Injection of contrast documented no interatrial shunt. There is mild mitral regurgitation. There is mild tricuspid regurgitation. Pulmonary artery pressures cannot be estimated because of the lack of a measurable TR jet velocity. The ascending aorta is mildly enlarged. ? Compared to the prior study dated 01/19/2021, no significant change. Labs Result Diagrams: 02/25/22 06:22 02/25/22 06:22 Labs: Laboratory Results - last 24 hr 02/24/22 02/24/22 02/24/22 20:11 20:11 20:11 WBC 6.3 RBC 4.73 Hgb 14.7 Hct 43.4 MCV 91.8 MCH 31.0 MCHC 33.8 RDW 14.0 Plt Count 144 L Neut % (Auto) 61.0 Lymph % (Auto) 25.2 [place] % (Auto) 11.7 Eos % (Auto) 1.6 L Baso % (Auto) 0.5 Neut # (Auto) 3800 Lymph # (Auto) 1600 [place] # (Auto) 700 Eos # (Auto) 100 Baso # (Auto) 0 PT 11.7 INR 1.1 APTT 29 Sodium 141 Potassium 4.1 Chloride 104 Carbon Dioxide 28 BUN 16 Creatinine 0.91 Estimated GFR > 60 BUN/Creatinine Ratio 17.6 Glucose 101 Hemoglobin A1c Calcium 8.8 Magnesium Total Bilirubin 0.3 Conjugated Bilirubin Unconjugated Bilirubin AST 35 ALT 23 Alkaline Phosphatase 85 Total Protein 7.4 Albumin 4.5 Globulin 2.9 Albumin/Globulin Ratio 1.6 Triglycerides Cholesterol LDL Cholesterol, Calc HDL Cholesterol U Opiates 300ng/mL cut Ur Oxycodone Screen Urine Methadone Screen Ur Barbiturates Screen U Tricyclic Antidepress Ur Phencyclidine Scrn Ur Amphetamines Screen U Methamphetamines Scrn Ur MDMA Scrn (Ecstasy) U Benzodiazepines Scrn Urine Cocaine Screen U Marijuana (THC) Screen SARS-CoV-2 (PCR) 02/24/22 02/24/22 02/24/22 20:11 20:11 20:22 WBC RBC Hgb Hct MCV MCH MCHC RDW Plt Count Neut % (Auto) Lymph % (Auto) [place] % (Auto) Eos % (Auto) Baso % (Auto) Neut # (Auto) Lymph # (Auto) [place] # (Auto) Eos # (Auto) Baso # (Auto) PT INR APTT Sodium Potassium Chloride Carbon Dioxide BUN Creatinine Estimated GFR BUN/Creatinine Ratio Glucose Hemoglobin A1c 5.4 Calcium Magnesium 2.3 Total Bilirubin Conjugated Bilirubin Unconjugated Bilirubin AST ALT Alkaline Phosphatase Total Protein Albumin Globulin Albumin/Globulin Ratio Triglycerides Cholesterol LDL Cholesterol, Calc HDL Cholesterol U Opiates 300ng/mL cut Ur Oxycodone Screen Urine Methadone Screen Ur Barbiturates Screen U Tricyclic Antidepress Ur Phencyclidine Scrn Ur Amphetamines Screen U Methamphetamines Scrn Ur MDMA Scrn (Ecstasy) U Benzodiazepines Scrn Urine Cocaine Screen U Marijuana (THC) Screen SARS-CoV-2 (PCR) Negative 02/24/22 02/25/22 02/25/22 21:51 06:22 06:22 WBC 5.3 RBC 4.41 L Hgb 13.8 Hct 40.6 L MCV 92.2 MCH 31.2 MCHC 33.8 RDW 14.1 Plt Count 121 L Neut % (Auto) 65.6 Lymph % (Auto) 19.2 L [place] % (Auto) 12.8 Eos % (Auto) 1.9 L Baso % (Auto) 0.5 Neut # (Auto) 3500 Lymph # (Auto) 1000 L [place] # (Auto) 700 Eos # (Auto) 100 Baso # (Auto) 0 PT INR APTT Sodium 139 Potassium 4.2 Chloride 109 H Carbon Dioxide 27 BUN 14 Creatinine 0.85 Estimated GFR > 60 BUN/Creatinine Ratio 16.5 Glucose 108 Hemoglobin A1c Calcium 8.2 L Magnesium 2.0 Total Bilirubin 0.3 Conjugated Bilirubin 0.0 Unconjugated Bilirubin 0.3 AST 25 ALT 19 Alkaline Phosphatase 74 Total Protein 6.3 Albumin 3.8 Globulin 2.5 Albumin/Globulin Ratio 1.5 Triglycerides 91 Cholesterol 75 L LDL Cholesterol, Calc 12 HDL Cholesterol 45 U Opiates 300ng/mL cut Negative Ur Oxycodone Screen Negative Urine Methadone Screen Negative Ur Barbiturates Screen Negative U Tricyclic Antidepress Negative Ur Phencyclidine Scrn Negative Ur Amphetamines Screen Negative U Methamphetamines Scrn Negative Ur MDMA Scrn (Ecstasy) Negative U Benzodiazepines Scrn Negative Urine Cocaine Screen Negative U Marijuana (THC) Screen Negative SARS-CoV-2 (PCR) [facility] Medical History Actinic keratosis (Unknown) BPH (benign prostatic hyperplasia) (Unknown) Coronary artery disease involving coronary bypass graft of [place] heart without angina pectoris (07/22/15) Deep vein thrombosis (2011) Essential hypertension (07/22/15) Hearing loss (Unknown) Hx of myocardial infarction (2009) Mixed hyperlipidemia (07/22/15) 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 Mother Cancer Social History household members: spouse Smoking Status: Never smoker Discharge Plan Discharge Plan Patient Disposition: Home Provider Discharge Comment: You had a stroke involving the left frontal part of your brain which affects your speech. All of your speech returned thankfully. An echocardiogram of her heart had was unchanged from prior. You are now on an additional anti-platelet agent called Plavix which he will take in addition to her aspirin for 3 weeks. After 3 weeks you stop it and continue aspirin in definitely. He will continue your rosuvastatin 40 mg nightly. It is unclear where the stroke came from so you should see your metal fabricating supervisor for possible further workup to include a heart monitor. She may also want to get an ultrasound of your carotid arteries at a later time however the CT scan did show less than 50% plaque on the left carotid which is a good thing. Discharge orders & Medications Prescriptions: New clopidogrel 75 mg Tablet 75 mg PO DAILY 20 Days Qty: 20 0RF Rx Instructions: Start on 02/26. Continued nitroglycerin [Nitrostat] 0.4 mg tablet, sublingual 0.4 mg SUBLINGUAL Q5-15M PRN (Reason: Chest Pain) Qty: 20 3RF aspirin 81 mg Tablet,Delayed Release (Dr/Ec) 81 mg PO BID naproxen sodium [Aleve] 220 mg Tablet 220 mg PO PRN PRN (Reason: Pain, Mild) metoprolol succinate 25 mg Tablet Extended Release 24 Hr 25 mg PO BEDTIME rosuvastatin 40 mg Tablet 20 mg PO BEDTIME isosorbide mononitrate 30 mg tablet extended release 24 hr 1 tab PO DAILY Label Comments: TAKE ONE TABLET BY MOUTH ONE TIME DAILY Repatha SureClick 140 mg/mL pen injector 1 ea SUBCUT USEASDIRECTD Rx Instructions: Injects twice monthly on the and metoprolol succinate 25 mg tablet extended release 24 hr PO Label Comments: TAKE ONE TABLET BY MOUTH ONE TIME DAILY Follow up/Referrals: Jairon Dotson DO [Primary Care Provider] - Visit Report/Discharge Packet Instructions: DI for Stroke-Ischemic, DI for Transient Ischemic Attack Discharge Data Primary Care Provider: Jairon Dotson Quality VTE Deep Vein Thrombosis/Pulmonary Embolism Present on Admission: No
== END 2022-02-25 18:00 | disposition home or self-care (01) ==
LOC: ED 22:01 → AC 22:05
PROVIDERS: Admitting Provider Nurse Practitioner Family; Emergency Provider Emergency Medicine; PCP Family Medicine; Referring Provider Emergency Medicine; Visit Provider Nurse Practitioner Family
DX: I63.40 Cerebral infarction due to embolism of unspecified cerebral artery (principal); I25.10 Atherosclerotic heart disease of native coronary artery without angina pectoris; R29.702 NIHSS score 2; I10 Essential (primary) hypertension; E78.5 Hyperlipidemia, unspecified; Z95.1 Presence of aortocoronary bypass graft; Z20.822 Contact with and (suspected) exposure to COVID-19
CPT/HCPCS: 36415; 70450; 70496; 70498; 70551; 80048; 80053; 80061; 80076; 80305; 81003; 82962; 83036; 83735; 85025; 85610; 85730; 87635; 93005; 93010; 93306; 99284; C9803; G0378

== ENCOUNTER → 2022-08-29 08:57 | Outpatient (CLI) | payer MEDICARE, SELFPAY ==
[2022-02-24 22:52] VITALS: BMI 26.5
[2022-08-29 09:17] LABS: Appearance Urine UA CLEAR; Bilirubin Urine UA NEGATIVE (NEGATIVE); Color Urine UA YELLOW; Glucose Urine UA 3+ g/dL (Negative); Ketones Urine UA NEGATIVE (NEGATIVE); Leukocyte Esterase Urine UA NEGATIVE (NEGATIVE); Nitrite Urine UA NEGATIVE (Negative); Occult Blood Urine UA NEGATIVE (Negative); Protein Urine UA NEGATIVE (Negative); Specific Gravity Urine UA 1.015 (1.000-1.035); Urobilinogen Urine UA 0.2 E.U./dL (0.2); pH Urine UA 5.5 (4.5-8.0)
[2022-08-29 09:23] LABS: Bacteria Urine None Seen; Culture Indicated Urine Cult Not Indicated; RBC Urine None Seen (0-5/HPF); Urine Comments Microscopic Normal; WBC Urine None Seen (0-5/HPF)
== END ==
PROVIDERS: PCP Family Medicine; Referring Provider Internal Medicine; Visit Provider Internal Medicine
DX: R82.90 Unspecified abnormal findings in urine (principal)
CPT/HCPCS: 81001

== ENCOUNTER → 2022-11-28 09:06 | Outpatient (CLI) | payer MEDICARE, SELFPAY ==
[2022-02-24 22:52] VITALS: BMI 26.5
[2022-11-28 10:15] LABS: BUN Creatinine Ratio 20.6 (6-22); Blood Urea Nitrogen 20 mg/dL (9-20); Calcium 8.9 mg/dL (8.4-10.2); Carbon Dioxide 31 mmol/L (22-32); Chloride 105 mmol/L (98-107); Estimated Glomerular Filt Rate > 60 mL/min (>60); Glucose 94 mg/dL (80-110); HEMOLYSIS < 15 (0-50); Potassium 4.4 mmol/L (3.4-5.1); Sodium 141 mmol/L (137-145)
== END ==
PROVIDERS: PCP Family Medicine; Referring Provider Internal Medicine; Visit Provider Internal Medicine
DX: I50.21 Acute systolic (congestive) heart failure (principal)
CPT/HCPCS: 36415; 80048

== ENCOUNTER → 2023-08-16 08:14 | Outpatient (CLI) | payer MEDICARE, SELFPAY ==
[2022-02-24 22:52] VITALS: BMI 26.5
[2023-08-16 09:07] LABS: Alanine Aminotransferase 17 IU/L (<50); Albumin 4.3 g/dL (3.5-5.0); Albumin Globulin Ratio 1.4 (1.0-2.8); Alkaline Phosphatase 83 U/L (38-126); Aspartate Aminotransferase 26 IU/L (17-59); BUN Creatinine Ratio 17.1 (6-22); Bilirubin Total 0.8 mg/dL (0.2-1.3); Blood Urea Nitrogen 18 mg/dL (9-20); Calcium 9.5 mg/dL (8.4-10.2); Carbon Dioxide 30 mmol/L (22-32); Chloride 105 mmol/L (98-107); Cholesterol 82 mg/dL (140-199); Estimated Glomerular Filt Rate > 60 mL/min (>60); Globulin 3.1 g/dL (1.7-4.1); Glucose 94 mg/dL (80-110); HDL Cholesterol 56 mg/dL (40-60); HEMOLYSIS < 15 (0-50); LDL Cholesterol Calculated 9 mg/dL (<100); Potassium 4.6 mmol/L (3.4-5.1); Sodium 141 mmol/L (137-145); Total Protein 7.4 g/dL (6.3-8.2); Triglycerides 87 mg/dL (35-150)
== END ==
LOC: LAB 08:17
PROVIDERS: PCP Family Medicine; Referring Provider Internal Medicine; Visit Provider Internal Medicine
DX: E78.2 Mixed hyperlipidemia (principal)
CPT/HCPCS: 36415; 80053; 80061

== ENCOUNTER → 2025-01-01 08:24 | Outpatient (CLI) | payer MEDICARE, SELFPAY ==
[2022-02-24 22:52] VITALS: BMI 26.5
[2025-01-01 09:48] LABS: Alanine Aminotransferase 14 IU/L (<50); Albumin 4.3 g/dL (3.5-5.0); Albumin Globulin Ratio 1.7 (1.0-2.8); Alkaline Phosphatase 85 U/L (38-126); Aspartate Aminotransferase 25 IU/L (17-59); BUN Creatinine Ratio 20.2 (6-22); Bilirubin Total 1.1 mg/dL (0.2-1.3); Blood Urea Nitrogen 19 mg/dL (9-20); Calcium 8.9 mg/dL (8.4-10.2); Carbon Dioxide 30 mmol/L (22-32); Chloride 103 mmol/L (98-107); Cholesterol 80 mg/dL (140-199); Estimated Glomerular Filt Rate > 60 mL/min (>60); Globulin 2.5 g/dL (1.7-4.1); Glucose 99 mg/dL (70-99); HDL Cholesterol 53 mg/dL (40-60); HEMOLYSIS < 15 (0-50); LDL Cholesterol Calculated 15 mg/dL (<100); Potassium 4.6 mmol/L (3.4-5.1); Sodium 141 mmol/L (137-145); Total Protein 6.8 g/dL (6.3-8.2); Triglycerides 62 mg/dL (35-150)
[2025-01-04 10:36] LABS: Lipoprotein (a) 109.2 nmol/L (<75.0)
== END ==
PROVIDERS: PCP Family Medicine; Referring Provider Internal Medicine; Visit Provider Internal Medicine
DX: I25.5 Ischemic cardiomyopathy (principal); E78.2 Mixed hyperlipidemia
CPT/HCPCS: 36415; 80053; 80061; 83695